=== PATIENT | male | born 1955 | race Caucasian/White ===

== ENCOUNTER 2016-11-26 16:00 | Inpatient (IN) | payer OTHER ==
[~2016-11-26] VITALS: Ht 185.4 cm; Wt 105.0 kg
[2016-11-26] MEDS ORDERED: SODIUM CHLORIDE 0.9% 1000ML 1,000 ML IV STA (16:19)
[2016-11-26] MEDS ORDERED: MoRPHine SULFATE 4 MG/ML 1 ML CARP\\VIAL IV STA (16:22)
[2016-11-26] MEDS ORDERED: ONDANSETRON INJ 2 MG/ML 2 ML VIAL IV STA ×2 (16:22→17:29)
[2016-11-26] MEDS ORDERED: OPTIRAY 320 IV PRN (16:30)
[2016-11-26 16:36] LABS: BASO % 0.1 %; BASO ABS # 0.01 K/uL (0-0.2); COMPLETE YES; HEMATOCRIT 40.5 % (42-52); IG% 0.5 %; LYMPH % 3.3 %; LYMPH ABS # 0.46 K/uL (1.2-3.4); MEAN CELL VOLUME 89.2 fL (80-100); MEAN CORPUSCULAR HEMOGLOBIN 31.5 pg (25-34); MEAN CORPUSCULAR HGB CONC 35.3 g/dl (32-36); MONO % 1.4 %; NEUT % 94.7 %; PLATELET COUNT 178 K/uL (130-400); RED BLOOD COUNT 4.54 M/uL (4.7-6.1); WHITE BLOOD COUNT 13.92 K/uL (4.8-10.8)
--- NOTE | 2016-11-26 16:43 | EMERGENCY ROOM VISIT NOTE ---
History Report prepared by Jhoana: Jase Abreu Under the Supervision of: Dr. Maxwell Posey D.O. First contact with patient: 16:08 Chief Complaint: LEG PAIN,LEG INJURY Stated Complaint: R LE ETREMITY PAIN, SWELLING, R/O BLOOD BLOT History of Present Illness The patient is a 61 year old male who presents to the Emergency Room with complaints of intermittent right foot tingling and stiffness that occurred this morning post surgery. The patient states he had a complete right knee replacement this morning at an outpatient center in [place]. He reports his foot hurt really bad after the surgery. The patient notes a Doppler scan was performed to search for a distal pulse, but it could not be found. He states heat was applied for an hour, and the pulse was still not detectable. The patient reports they bandaged his knee up and sent him to the ED for a CT to rule out a blood clot. He notes when his discomfort started, he could not move his foot. The patient states his discomfort radiated through his foot to the middle of the ankle. He reports it went away, and he was able to move his foot again. The patient notes sitting down worsens his discomfort. Source of History: patient Onset: this morning post surgery Position: foot (right) Quality: tingling, other (stiffness) Modifying Factors (Worsening): other (sitting) Note: Associated symptoms: unidentifiable distal pulse Review of Systems See HPI for pertinent positives & negatives. A total of 10 systems reviewed and were otherwise negative. Past Medical & Surgical Surgical Problems: (1) History of right knee joint replacement Family History Patient reports no known family medical history. Social History Smoking Status: Never Smoker Marital Status: Current/Historical Medications Scheduled Aspirin (Aspirin Ec), 81 MG PO BID Cholecalciferol (Vitamin D3), 1 TAB PO DAILY Fish Oil ([place]-3), 1 CAP PO HOLD Meloxicam (Mobic), 15 MG PO DAILY Scheduled PRN Celecoxib (CeleBREX), 200 MG PO BID PRN for Pain Docusate Sodium (Docusate Sodium), 1 CAP PO DAILY PRN for Constipation Ondasetron Odt (Zofran Odt), 4 MG SL Q8 PRN for Nausea or Vomiting Oxycodone Immediate Rel Tab (Roxicodone Ir), 5 MG PO PRN UD PRN for Severe Pain Allergies Coded Allergies: Sulfa Antibiotics (Verified Allergy, Unknown, Childhood allergy, 11/26/16) Physical Exam Vital Signs Date Time Temp Pulse Resp B/P (MAP) Pulse Ox O2 Delivery O2 Flow Rate FiO2 11/26/16 18:58 88 15 159/82 95 11/26/16 17:37 66 11/26/16 17:29 63 15 131/70 95 Room Air 11/26/16 16:02 36.9 71 18 149/85 96 Room Air Physical Exam GENERAL: Sitting up is bed, disheveled, no distress, non-toxic EYE EXAM: normal conjunctiva OROPHARYNX: no exudate, no erythema, lips, buccal mucosa, and tongue normal and mucous membranes are moist NECK: supple, no nuchal rigidity, no adenopathy, non-tender LUNGS: Clear to auscultation. Normal chest wall mechanics HEART: no murmurs, S1 normal and S2 normal ABDOMEN: abdomen soft, non-tender, normo-active bowel sounds, no masses, no rebound or guarding. BACK: Back is symmetrical on inspection and there is no deformity, no midline tenderness, no CVA tenderness. SKIN: no rashes and no bruising UPPER EXTREMITIES: upper extremities are grossly normal. LOWER EXTREMITIES: Palpable right femoral pulse, unable to detect popliteal, DT , and PT pulses. Gross sensation intact. Surgical dressing over top of right knee is bloody with a small amount of oozing. NEURO EXAM: Normal sensorium. Medical Decision & Procedures ER Provider Diagnostic Interpretation: Radiology results as stated below per my review and the radiologist's interpretation: R ANGIOGRAPHY LOWER EXT COMBO CLINICAL HISTORY: 61 years-old Male presenting with right knee replacement today, loss of pulse in the foot, foot numbness and tingling. TECHNIQUE: Multidetector CT angiography of the right lower extremity was performed after the administration of intravenous contrast. 3-D volumetric and/or maximum intensity projection (MIP) images were subsequently reconstructed for review. IV contrast: 120 mL of Optiray 320. A dose lowering technique was used consistent with the principles of ALARA (as low as reasonably achievable). Stenosis measurements were based on NASCET-like criteria. COMPARISON: None. CT DOSE (mGy.cm): The estimated cumulative dose is 900.42 mGy.cm. 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 Right external iliac artery patent. Circumferential calcified and noncalcified atherosclerotic plaque at the common femoral, which results in mild narrowing. The superficial and deep right femoral arteries are patent. At the level of the popliteal hiatus, there is complete occlusion of the right popliteal artery immediately distal to the takeoff of a superficial vessel. The right popliteal artery is occluded throughout its course, although poorly assessed at the level of the knee joint secondary to extensive streak artifact arising from the arthroplasty. The tibioperoneal trunk is occluded. Minimal reconstitution of the proximal anterior tibial artery from a collateral vessel with the mid to distal anterior tibial artery not opacified, possibly occluded. The peroneal artery is nonopacified at its origin and proximally but reconstituted in the mid to distal portion by a superficial collateral vessel. The posterior tibial artery is also not opacified proximally but reconstituted in the mid to distal portion by a superficial collateral vessel. Poor opacification of the vessels at the level of the ankle mortise and beyond. Minimal visualization of the left lower extremity within normal limits. Post surgical changes of total right knee arthroplasty with patellar resurfacing. Expected intra-articular and soft tissue emphysema. Overlying surgical skin deloris in place. No acute fracture or hardware complication. No malalignment. Normal muscle bulk. No fluid collection outside of postsurgical change. No soft tissue gas outside of postsurgical change. IMPRESSION: 1. Occlusion of the right popliteal artery at the level of the abductor hiatus and throughout its length. Suspected occlusion or poor opacification of the proximal portions of the branch vessels tibial with reconstitution of flow in the mid to distal peroneal and posterior tibial arteries. The anterior tibial artery is largely non-opacified by collateral vessel. Poor opacification of all vessels at and distal to the ankle. 2. Post surgical changes of total right knee arthroplasty with patellar resurfacing. The report will be called/faxed according to standard departmental protocol. Electronically signed by: Norbert Calderon M.D. 11/26/2016 5:39 PM Dictated Date/Time: 11/26/2016 5:27 PM Laboratory Results 11/26/16 16:26 Red Blood Count 4.54, Mean Corpuscular Volume 89.2, Mean Corpuscular Hemoglobin 31.5, Mean Corpuscular Hemoglobin Concent 35.3, Mean Platelet Volume 9.0, Neutrophils (%) (Auto) 94.7, Lymphocytes (%) (Auto) 3.3, Monocytes (%) (Auto) 1.4, Eosinophils (%) (Auto) 0.0, Basophils (%) (Auto) 0.1, Neutrophils # (Auto) 13.19, Lymphocytes # (Auto) 0.46, Monocytes # (Auto) 0.19, Eosinophils # (Auto) 0.00, Basophils # (Auto) 0.01 11/26/16 16:26 Test 11/26/16 16:26 11/26/16 16:36 White Blood Count 13.92 K/uL (4.8-10.8) Red Blood Count 4.54 M/uL (4.7-6.1) Hemoglobin 14.3 g/dL (14.0-18.0) Hematocrit 40.5 % (42-52) Mean Corpuscular Volume 89.2 fL (80-100) Mean Corpuscular Hemoglobin 31.5 pg (25-34) Mean Corpuscular Hemoglobin Concent 35.3 g/dl (32-36) Platelet Count 178 K/uL (130-400) Mean Platelet Volume 9.0 fL (7.4-10.4) Neutrophils (%) (Auto) 94.7 % Lymphocytes (%) (Auto) 3.3 % Monocytes (%) (Auto) 1.4 % Eosinophils (%) (Auto) 0.0 % Basophils (%) (Auto) 0.1 % Neutrophils # (Auto) 13.19 K/uL (1.4-6.5) Lymphocytes # (Auto) 0.46 K/uL (1.2-3.4) Monocytes # (Auto) 0.19 K/uL (0.11-0.59) Eosinophils # (Auto) 0.00 K/uL (0-0.5) Basophils # (Auto) 0.01 K/uL (0-0.2) RDW Standard Deviation 40.3 fL (36.4-46.3) RDW Coefficient of Variation 12.6 % (11.5-14.5) Immature Granulocyte % (Auto) 0.5 % Immature Granulocyte # (Auto) 0.07 K/uL (0.00-0.02) Est Creatinine Clear Calc Drug Dose 72.1 ml/min Estimated GFR () 74.7 Estimated GFR (Non- 64.4 BUN/Creatinine Ratio 15.9 (10-20) Calcium Level 8.1 mg/dl (8.5-10.1) Bedside Hemoglobin 13.9 g/dl (14.0-18.0) Bedside Hematocrit 41 % (42-52) Bedside Sodium 137 mEq/L (135-144) Bedside Potassium 4.2 mEq/L (3.3-5.0) Bedside Chloride 103 mEq/L (101-112) Bedside Total CO2 21 mEq/l (24-31) Anion Gap 19.0 mmol/L (16-25) Bedside Blood Urea Nitrogen 20 mg/dl (7-18) Bedside Creatinine 1.0 mg/dl (0.6-1.3) Bedside Glucose (other) 200 mg/dl (70-99) Bedside Ionized Calcium (Tiny) 1.17 mmol/l (1.12-1.32) Laboratory results per my review. Medications Administered Medications (Trade) Dose Ordered Sig/Sondra Route Start Time Stop Time Status Last Admin Dose Admin Sodium Chloride 1,000 ml @ 999 mls/hr Q1H1M STAT IV 11/26/16 16:19 11/26/16 17:19 DC 11/26/16 16:47 999 MLS/HR Morphine Sulfate (MoRPHine SULFATE INJ) 4 mg NOW STAT IV 11/26/16 16:22 11/26/16 16:23 DC 11/26/16 16:47 4 MG Ondansetron HCl (Zofran Inj) 4 mg NOW STAT IV 11/26/16 16:22 11/26/16 16:23 DC 11/26/16 16:47 4 MG Miscellaneous Information (Patient'S Allergy Info Needs Entered) 1 ea Q30M N/A 11/26/16 17:00 12/26/16 16:59 11/26/16 17:34 1 EA Morphine Sulfate (MoRPHine SULFATE INJ) 6 mg NOW STAT IV 11/26/16 17:29 11/26/16 17:30 DC 11/26/16 17:34 6 MG Ondansetron HCl (Zofran Inj) 4 mg NOW STAT IV 11/26/16 17:29 11/26/16 17:30 DC 11/26/16 17:34 4 MG ECG Indication: other (unobtainable distal pulses) Rate (beats per minute): 71 Rhythm: sinus rhythm Findings: RBBB (incomplete), left axis deviation, other (poor baseline) ED Course ED COURSE: Vital signs were reviewed and showed the patient is hypertensive. The patients medical record was reviewed The above diagnostic studies were performed and reviewed. ED treatments and interventions as stated above. 1611: The patient was evaluated in room C09. A complete history and physical examination was performed. 1619: Ordered Sodium Chloride 1000 ml @ 999 mls/hr IV 1622: Ordered Zofran Inj 4mg IV, Morphine Sulfate 4mg IV 1729: Ordered Zofran Inj 4mg IV, Morphine Sulfate 6mg IV 175: I discussed the patient's case with Dr. Del Toro, Surgery. The patient will be evaluated for further treatment and care. 175: Upon reevaluation, the patient is resting.I discussed my findings with the patient and he understands and agrees with the treatment plan. 1847: I reevaluated the patient. Dr. Del Toro has not seen the patient yet. Based on the patients age, coexisting illnesses, exam and lab findings the decision to treat as an inpatient was made. The patient remained stable while under my care. The patient will be evaluated for further management. Medical Decision Differential diagnosis: Etiologies such as DVT, musculoskeletal, infection, joint effusion, trauma, lymphedema, idiopathic, CHF, arterial occlusion, as well as others were entertained. Patient is a 61-year-old male who has had a right knee replacement down in [place]. Patient had pain and tingling in the right foot following the surgery associated with tightness. They were unable to obtain pulses they sent him for CTA of the leg. He denies any headache or change in vision. On my exam I am unable to obtain pulses from the popliteal distally. I-STAT was obtained and he was sent for CT of the leg. CBC has mild leukocytosis. BMP was unremarkable. CT angiogram of the leg shows acute arterial occlusion of the popliteal artery and distally. Discussed with vascular surgery who evaluated the patient agreed taken to the OR. Held on anticoagulation per vascular surgery. Discussed with anesthesia at bedside. Medication Reconcilliation Current Medication List: was personally reviewed by me Blood Pressure Screening Patient's blood pressure: Elevated blood pressure Blood pressure disposition: Elevated BP felt to be situational Consults Time Called: 174 Consulting Physician: Dr. Del Toro, Surgery Returned Call: [phone] I discussed the patient's case with Dr. Del Toro, Surgery. The patient will be evaluated for further treatment and care. Impression Primary Impression: Arterial occlusion Critical Care I have personally spent 35 minutes of critical care time in the direct management of this patient. This includes bedside care, interpretation of diagnostic studies, and testing, discussion with consultants, patient, and family members, and other required patient management activities. This 35 minutes is in excess of all separately billable procedures. Scribe Attestation The scribe's documentation has been prepared under my direction and personally reviewed by me in its entirety. I confirm that the note above accurately reflects all work, treatment, procedures, and medical decision making performed by me. Departure Information Dispostion Being Evaluated By Surgeon Nikolai Taylor M.D. (PCP) Patient Instructions My [facility]
[2016-11-26 16:50] LABS: ISTAT HEMOGLOBIN 13.9 g/dl (14.0-18.0); ISTAT IONIZED CALCIUM 1.17 mmol/l (1.12-1.32)
[2016-11-26] MEDS: PATIENT'S ALLERGY INFO NEEDS ENTERED SCH ×2 (17:00→17:34)
[2016-11-26] MEDS ORDERED: OMEG10007 PO (17:15)
[2016-11-26] MEDS ORDERED: CHOL1000 PO (17:15)
[2016-11-26] MEDS ORDERED: MoRPHine SULFATE 10 MG/ML CARP/VIAL IV STA (17:29)
[2016-11-26 17:37] LABS: BUN/CREATININE RATIO 15.9 (10-20); CALCIUM 8.1 mg/dl (8.5-10.1); CREATININE 1.2 mg/dl (0.60-1.40); POTASSIUM 4.2 mmol/L (3.5-5.1)
[2016-11-26] MEDS ORDERED: MELO15TA10 PO (17:39)
[2016-11-26] MEDS ORDERED: ASPI81TA28 PO (17:39)
[2016-11-26] MEDS ORDERED: DOCU100C31 PO (17:39)
[2016-11-26] MEDS ORDERED: ONDA4TAB10 SL (17:39)
[2016-11-26] MEDS ORDERED: OXYC1TAB3 PO (17:39)
[2016-11-26] MEDS ORDERED: CLB/200 PO (17:39)
--- NOTE | 2016-11-26 17:40 | DIAGNOSTIC IMAGING REPORT ---
R ANGIOGRAPHY LOWER EXT COMBO CLINICAL HISTORY: 61 years-old Male presenting with right knee replacement today, loss of pulse in the foot, foot numbness and tingling. TECHNIQUE: Multidetector CT angiography of the right lower extremity was performed after the administration of intravenous contrast. 3-D volumetric and/or maximum intensity projection (MIP) images were subsequently reconstructed for review. IV contrast: 120 mL of Optiray 320. A dose lowering technique was used consistent with the principles of ALARA (as low as reasonably achievable). Stenosis measurements were based on NASCET-like criteria. COMPARISON: None. CT DOSE (mGy.cm): The estimated cumulative dose is 900.42 mGy.cm. FINDINGS: Technical Associate topogram: Total right knee arthroplasty. Right external iliac artery patent. Circumferential calcified and noncalcified atherosclerotic plaque at the common femoral, which results in mild narrowing. The superficial and deep right femoral arteries are patent. At the level of the popliteal hiatus, there is complete occlusion of the right popliteal artery immediately distal to the takeoff of a superficial vessel. The right popliteal artery is occluded throughout its course, although poorly assessed at the level of the knee joint secondary to extensive streak artifact arising from the arthroplasty. The tibioperoneal trunk is occluded. Minimal reconstitution of the proximal anterior tibial artery from a collateral vessel with the mid to distal anterior tibial artery not opacified, possibly occluded. The peroneal artery is nonopacified at its origin and proximally but reconstituted in the mid to distal portion by a superficial collateral vessel. The posterior tibial artery is also not opacified proximally but reconstituted in the mid to distal portion by a superficial collateral vessel. Poor opacification of the vessels at the level of the ankle mortise and beyond. Minimal visualization of the left lower extremity within normal limits. Post surgical changes of total right knee arthroplasty with patellar resurfacing. Expected intra-articular and soft tissue emphysema. Overlying surgical skin deloris in place. No acute fracture or hardware complication. No malalignment. Normal muscle bulk. No fluid collection outside of postsurgical change. No soft tissue gas outside of postsurgical change. IMPRESSION: 1. Occlusion of the right popliteal artery at the level of the abductor hiatus and throughout its length. Suspected occlusion or poor opacification of the proximal portions of the branch vessels tibial with reconstitution of flow in the mid to distal peroneal and posterior tibial arteries. The anterior tibial artery is largely non-opacified by collateral vessel. Poor opacification of all vessels at and distal to the ankle. 2. Post surgical changes of total right knee arthroplasty with patellar resurfacing. The report will be called/faxed according to standard departmental protocol. Electronically signed by: Norbert Calderon M.D. 11/26/2016 5:39 PM Dictated Date/Time: 11/26/2016 5:27 PM
[2016-11-26] MEDS ORDERED: PAPAVERINE HCL INJ 30 MG/ML 2 ML VIAL ONE (19:15)
[2016-11-26] MEDS ORDERED: THROMBIN 5000 UNITS KIT ONE (19:15)
[2016-11-26] MEDS ORDERED: BUPIVACAINE/EPINEPHRINE 0.5% MPF 1:200,000 30 ML VIAL ONE (19:15)
[2016-11-26] MEDS ORDERED: LIDOCAINE HCL 1% 20 ML VIAL ONE (19:15)
[2016-11-26] MEDS ORDERED: IODIXANOL (VISIPAQUE) 270 MG/ML 50ML ONE (19:15)
[2016-11-26] MEDS ORDERED: GELATIN SPONGE SZ 100 ONE (19:15)
[2016-11-26] MEDS ORDERED: HEPARIN SOD (PORCINE) 1000 UNIT/ML 10 ML VIAL ONE ×3 (19:16→22:10)
[2016-11-26] MEDS ORDERED: CEFAZOLIN SOD 1 GM VIAL ONE ×2 (19:16→19:30)
[2016-11-26] MEDS ORDERED: MIDAZOLAM HCL 1 MG/ML 2ML VIAL ONE (19:17)
[2016-11-26] MEDS ORDERED: PROPOFOL IV EMULSION 10 MG/ML 20 ML VIAL IV ONE (19:17)
[2016-11-26] MEDS ORDERED: FENTANYL CITRATE INJ 50 MCG/1 ML 2 ML VIAL ONE (19:17)
--- NOTE | 2016-11-26 19:17 | History and Physical ---
History & Physical Date Nov 26, 2016. Chief Complaint Right leg ischemia History of Present Illness The patient is a 61 year old male who had a total knee today. Post op he developed pain, coldness and numbness of his right foot. Did not improve and he was then sent here for treatment. Vitals Vital Signs Past 12 Hours Date Time Temp Pulse Resp B/P (MAP) Pulse Ox O2 Delivery O2 Flow Rate FiO2 11/26/16 18:58 88 15 159/82 95 11/26/16 17:37 66 11/26/16 17:29 63 15 131/70 95 Room Air 11/26/16 16:02 36.9 71 18 149/85 96 Room Air Allergies Coded Allergies: Sulfa Antibiotics (Verified Allergy, Unknown, Childhood allergy, 11/26/16) Home Medications Scheduled Aspirin (Aspirin Ec), 81 MG PO BID Cholecalciferol (Vitamin D3), 1 TAB PO DAILY Fish Oil ([place]-3), 1 CAP PO HOLD Meloxicam (Mobic), 15 MG PO DAILY Scheduled PRN Celecoxib (CeleBREX), 200 MG PO BID PRN for Pain Docusate Sodium (Docusate Sodium), 1 CAP PO DAILY PRN for Constipation Ondasetron Odt (Zofran Odt), 4 MG SL Q8 PRN for Nausea or Vomiting Oxycodone Immediate Rel Tab (Roxicodone Ir), 5 MG PO PRN UD PRN for Severe Pain Social History Smoking Status: Never Smoker Review of Systems Constitutional: No chills, No diaphoresis, No fever, No malaise, No weakness, No weight gain, No weight loss, No sweats, No fatigue, No problem reported Respiratory: No cough, No cyanosis, No SUÁREZ, No hemoptysis, No orthopnea, No PND , No short of breath, No sputum production, No stridor, No wheezing, No dyspnea , No problem reported Cardiovascular: No chest pain, No chest tightness, No chest pressure, No palpitations, No syncope, No diaphoresis, No edema, No intermittent claudication , No orthopnea, No cyanosis, No mumur, No lightheadedness, No paroxysmal nocturnal dyspnea, No problem reported Gastrointestinal: No abdominal pain, No constipation, No diarrhea, No nausea, No vomiting, No anorexia, No appetite changes, No belching, No flatulence, No food intolerance, No hematemesis, No hemorrhoids, No hematochezia, No stool changes, No heartburn, No indigestion, No dysphagia, No rectal bleeding, No problem reported Musculoskeletal: + joint pain Neurologic: No dizziness, No weakness, No headache, No lethargy, No numbness, No paresthesia, No pre-existing deficit, No seizures, No tics, No tingling, No tremors, No vertigo, No memory loss, No LOC, No problem reported Physical Exam Constitutional: General Apperance: heathly-appearing, well-nourished, well-developed Level of Distress: NAD Ambulation: ambulating normally Psychiatric: Mental Status: active & alert, normal mood, normal affect Orientation: oriented except where noted, to time, to place, to person Memory: recent memory normal, remote memory normal Lungs: Auscultation: breath sounds normal Cardiovascular: Heart Auscultation: RRR Peripheral Pulses: Radial Pulse: normal on the left, normal on the right Femoral Pulse: normal on the left, normal on the right Posterior Tibialis Pulse: normal on the left, absent on the right Dorsalis Pedis Pulse: normal on the left, absent on the right Abdomen: Inspection & Palpation: soft Musculoskeletal: normal Extremities: Upper Right: no cyanosis, no edema, no varicosities, no palpable cord, no clubbing, no ulcers, no mottling Upper Left: no cyanosis, no edema, no varicosities, no palpable cord, no clubbing, no ulcers, no mottling Lower Right: pertinent finding (pale and cool) Lower Left: no cyanosis, no edema, no varicosities, no palpable cord, no clubbing, no ulcers, no mottling Neurologic: Cranial Nerves: grossly intact Sensation: grossly intact Assessment and Plan Imp: Right popliteal artery occlusion Plan: CTA showed a right popliteal artery occlusion. Will need operative intervention. I have discussed the risks options and benefits of the procedure with the patient. The patient understands the risks options and benefits and agrees to the procedure.
[2016-11-26] MEDS ORDERED: ONDANSETRON INJ 2 MG/ML 2 ML VIAL ONE (19:28)
[2016-11-26] MEDS ORDERED: DEXAMETHASONE SOD INJ 4 MG/ML VIAL ONE (19:28)
[2016-11-26] MEDS ORDERED: GLYCOPYRROLATE INJ 0.2 MG/ML VIAL ONE (19:30)
[2016-11-26] MEDS ORDERED: NEOSTIGMINE METHYLSULFATE 5 MG/5 ML SYR ONE (19:30)
[2016-11-26] MEDS ORDERED: ONDANSETRON INJ 2 MG/ML 2 ML VIAL IV PRN (20:00)
[2016-11-26] MEDS ORDERED: MEPERIDINE HCL 25 MG/ML CARP IV PRN (20:00)
[2016-11-26] MEDS ORDERED: LABETALOL HCL IV 5 MG/ML 20ML IV PRN (20:00)
[2016-11-26] MEDS ORDERED: ATROPINE SULFATE 0.1 MG/ML 5ML SYR IV PRN (20:00)
[2016-11-26] MEDS ORDERED: FENTANYL CITRATE INJ 50 MCG/1 ML 2 ML VIAL IV PRN (20:00)
[2016-11-26] MEDS ORDERED: EpHEDrine SULFATE INJ 50 MG/ML AMP IV PRN (20:00)
[2016-11-26] MEDS ORDERED: HYDROmorphone INJ 1 MG/ML SYR IV PRN (20:00)
[2016-11-26] MEDS ORDERED: EpHEDrine SULFATE INJ 50 MG/ML AMP ONE (21:02)
[2016-11-26] MEDS ORDERED: PHENYLEPHRINE HCL INJ 10 MG/ML VIAL ONE (21:27)
[2016-11-27] VITALS (25 sets, daily range): BP systolic 87–127; BP diastolic 57–87; PULSE 71–110; TEMP 36.1–37; O2SAT 97–100; Ht 185.4 cm; Wt 105.0 kg
[2016-11-27 00:45] LABS: HEMATOCRIT 33.6 % (42-52)
[2016-11-27] MEDS ORDERED: ALBUMIN HUMAN 5% 12.5 GM/250 ML VIAL IV ONE (00:53)
[2016-11-27] MEDS ORDERED: HYDROmorphone INJ 2 MG/ML SYR/VIAL ONE (02:03)
[2016-11-27] MEDS ORDERED: PROPOFOL IV EMULSION 10 MG/ML 20 ML VIAL IV ONE (02:04)
[2016-11-27] MEDS ORDERED: D5W AND 1/2NSS 1,000 ML IV SCH (02:29)
--- NOTE | 2016-11-27 02:29 | [facility] Post Operative Brief Note ---
Immediate Operative Summary Operative Date Nov 27, 2016. Pre-Operative Diagnosis Right popliteal artery occlusionRight Ischemic Leg Post-Operative Diagnosis Right Ischemic Leg; Right popliteal artery occlusion and infrpopliteal occlusive disease Procedure(s) Performed Thrombectomy of right lower extremity; arteriography; exploration of anterior tibial artery; femoral to distal posterior tibial artery insitu bypass. Surgeon Dr. Del Toro Post Secondary Professional Surgeon(s) none Estimated Blood Loss 1200mL Findings doppler heard beyond the bypass Specimens none per surgeon Anesthesia Gen Complication(s) None Disposition Surgical ICU
[2016-11-27] MEDS ORDERED: PROPOFOL IV EMULSION 10 MG/ML 100 ML VIAL IV ONE (02:41)
[2016-11-27] MEDS ORDERED: PHENYLEPHRINE HCL INJ 20 MG in DEXTROSE 5% 500ML 500 ML IV PRN (03:18)
[2016-11-27] MEDS ORDERED: FENTANYL CITRATE INJ 50 MCG/1 ML 2 ML VIAL IV PRN (03:30)
[2016-11-27] MEDS ORDERED: EpHEDrine SULFATE INJ 50 MG/ML AMP IV PRN (03:45)
[2016-11-27] MEDS ORDERED: ATROPINE SULFATE 0.1 MG/ML 5ML SYR IV PRN (03:45)
[2016-11-27] MEDS ORDERED: MIDAZOLAM 125MG/250ML D5W 250 ML IV PRN (03:45)
[2016-11-27 04:03] LABS: BUN/CREATININE RATIO 11.3 (10-20); CREATININE 1.6 mg/dl (0.60-1.40); POTASSIUM 5.1 mmol/L (3.5-5.1)
[2016-11-27 04:04] LABS: HEMATOCRIT 27.8 % (42-52); MEAN CELL VOLUME 91.7 fL (80-100); MEAN CORPUSCULAR HEMOGLOBIN 31.4 pg (25-34); MEAN CORPUSCULAR HGB CONC 34.2 g/dl (32-36); MEAN PLATELET VOLUME 8.3 fL (7.4-10.4); PLATELET COUNT 187 K/uL (130-400); RED BLOOD COUNT 3.03 M/uL (4.7-6.1); WHITE BLOOD COUNT 23.31 K/uL (4.8-10.8)
[2016-11-27 04:05] LABS: BASO ABS # 0.01 K/uL (0-0.2); COMPLETE YES; IG% 0.7 %; LYMPH % 6.9 %; LYMPH ABS # 1.61 K/uL (1.2-3.4); MONO % 6.2 %; NEUT % 86.2 %
[2016-11-27] MEDS: NORMOSOL R 1,000 ML IV SCH ×2 (04:08→09:02)
[2016-11-27] MEDS: CEFAZOLIN IV 2,000 MG in DEXTROSE 5% 50ML 50 ML IV SCH ×2 (04:21→12:18)
--- NOTE | 2016-11-27 04:41 | Critical Care Consultation ---
Critical Care Consultation Date of Consultation: Nov 27, 2016. Attending Physician: Jase Del Toro M.D. Reason for Consultation: 61-year-old man status post RIGHT lower extremity thrombectomy with bypass grafting in the setting of acute RIGHT popliteal artery occlusion and ischemic leg. History of Present Illness History of present illness is limited secondary the patient's current state of sedation with intubation. Per records and staff members, the patient is a 61-year-old male who underwent elective outpatient RIGHT total knee arthroplasty this morning in [facility]. While in the recovery room, the patient reported to have coldness and numbness to the RIGHT lower extremity. He was directed to the closest emergency department and elected to come to the [facility] by private vehicle for further evaluation and management. A CTA of the RIGHT lower extremity confirms suspicion of acute arterial occlusion of the RIGHT lower extremity. Emergent consultation to Dr. Del Toro of vascular surgery was obtained. Thrombectomy of the RIGHT lower extremity with bypass grafting was performed on an emergent basis. There was reportedly a moderate amount of blood loss. Patient required blood pressure support with phenylephrine throughout the procedure. He received 1 unit of PRBCs intraoperatively. He was brought to the ICU intubated and sedated with propofol. The patient was thought to have undergone stress test prior to surgical intervention earlier today. He is known to have osteoarthritis. No known history of cardiac disease otherwise. Patient was a former 40 year smoker. Past Medical/Surgical History Medical Problems: (1) Osteoarthritis. Past Surgical History: (1) RIGHT Total Knee Arthroplasty Family History Patient reports no known family medical history. Noncontributory Social History Smoking Status: Former Smoker Smokeless Tobacco Use: No Alcohol Use: Drug Use: none Marital Status: Housing Status: lives with family Occupation Status: employed Allergies Coded Allergies: Sulfa Antibiotics (Verified Allergy, Unknown, Childhood allergy, 11/26/16) Home Medications Scheduled Aspirin (Aspirin Ec), 81 MG PO BID Cholecalciferol (Vitamin D3), 1 TAB PO DAILY Fish Oil ([place]-3), 1 CAP PO HOLD Meloxicam (Mobic), 15 MG PO DAILY Scheduled PRN Celecoxib (CeleBREX), 200 MG PO BID PRN for Pain Docusate Sodium (Docusate Sodium), 1 CAP PO DAILY PRN for Constipation Ondasetron Odt (Zofran Odt), 4 MG SL Q8 PRN for Nausea or Vomiting Oxycodone Immediate Rel Tab (Roxicodone Ir), 5 MG PO PRN UD PRN for Severe Pain Current Inpatient Medications Current Inpatient Medications Medications (Trade) Dose Ordered Sig/Sondra Route Start Time Stop Time Status Last Admin Dose Admin Ioversol (Optiray 320) 100 ml UD PRN IV 11/26/16 16:30 11/30/16 16:29 Morphine Sulfate (MoRPHine SULFATE INJ) If PO analgesic is orde... Q2H PRN IV 11/27/16 02:30 12/11/16 02:29 Cefazolin Sodium 2000 mg/Dextrose 60 ml @ 100 mls/hr Q8H IV 11/27/16 04:00 11/27/16 12:35 11/27/16 04:21 100 MLS/HR Enoxaparin Sodium (Lovenox Inj) 30 mg Q12 SQ 11/27/16 08:00 12/27/16 07:59 UNV Aspirin (Ecotrin Tab) 81 mg BID PO 11/27/16 09:00 12/27/16 08:59 Parenteral Electrolyte Solution 1,000 ml @ 100 mls/hr Q10H IV 11/27/16 03:15 12/27/16 03:14 11/27/16 04:08 100 MLS/HR Fentanyl Citrate (Fentanyl Inj) 50 mcg Q1H PRN IV 11/27/16 03:30 12/11/16 03:29 Pantoprazole Sodium 40 mg/ Syringe 10 ml @ 5 mls/min DAILY@1100 IV 11/27/16 11:00 12/27/16 10:59 Phenylephrine HCl 20 mg/Dextrose 502 ml @ 0 mls/hr Q0M PRN IV 11/27/16 03:18 12/27/16 03:17 Ephedrine Sulfate (EpHEDrine SULFATE INJ) 5 mg Q5M PRN IV 11/27/16 03:45 11/27/16 10:00 Atropine Sulfate (Atropine Sulfate 0.1MG/Ml Inj) 0.5 mg Q1M PRN IV 11/27/16 03:45 11/27/16 10:00 Midazolam HCl 250 ml @ 0 mls/hr Q0M PRN IV 11/27/16 03:45 12/27/16 03:44 11/27/16 04:02 2 MLS/HR Review of Systems Unable to obtain secondary to sedation and intubation. Physical Exam Date Time Temp Pulse Resp B/P (MAP) Pulse Ox O2 Delivery O2 Flow Rate FiO2 11/27/16 04:26 36.4 107 12 92/65 (74) 100 Mechanical Ventilator 40 11/27/16 03:23 40 11/27/16 03:10 36 110 16 121/75 (84) 100 Mechanical Ventilator 40 11/27/16 03:00 36 95 12 11/27/16 03:00 95 12 91/54 100 11/27/16 02:55 93 12 84/57 100 11/27/16 02:55 92 12 11/27/16 02:52 78/57 11/27/16 02:50 90 12 100 11/27/16 02:50 90 12 11/27/16 02:45 89 12 11/27/16 02:45 89 12 100 11/27/16 02:43 107/65 11/27/16 02:40 87 18 11/27/16 02:40 87 18 100 11/27/16 02:37 189/103 11/27/16 02:30 36.1 84 16 189/103 (121) 100 Mechanical Ventilator 40 11/26/16 18:58 88 15 159/82 95 11/26/16 17:37 66 11/26/16 17:29 63 15 131/70 95 Room Air 11/26/16 16:02 36.9 71 18 149/85 96 Room Air VITAL SIGNS - Vital signs and nursing notes were reviewed. GENERAL - 61-year-old male appearing his stated age who is in no acute distress. Sedated and endotracheally intubated. HEAD - NC/AT. EYES - Sluggish Pupils with EOMI bilaterally. Sclera anicteric. Palpebral conjunctiva pink and moist with no injection noted. EARS - No deformities of external structures noted on gross examination bilaterally. NOSE - Midline and without cyanosis. No epistaxis or purulent drainage noted. Septum midline without deviation or septal hematoma noted. MOUTH/OROPHARYNX - Without perioral cyanosis. Endotracheally intubated. NECK - Supple to palpation. LUNGS - Chest wall symmetric without accessory muscle use, intercostals retractions, or central cyanosis. Normal vesicular breath sounds CTA B/L. No wheezes, rales, or rhonchi appreciated. CARDIAC - RRR with S1/S2. No murmur, rubs, or gallops appreciated. ABDOMEN - Abdominal contour obese without pulsations or visible masses. BS normoactive all four quadrants. EXTREMITIES - Bilateral surgical incisions noted to the RIGHT lower extremity. Slight mottling of the RIGHT Foot. No palpable dorsalis pedis pulse. Doppler of the RIGHT posterior tibial pulse noted. NEUROLOGIC/PSYCH - Unable to assess secondary to state of intubation with sedation. Laboratory Results Last 24 Hours Test 11/26/16 16:26 11/26/16 16:36 11/27/16 00:31 11/27/16 03:25 White Blood Count 13.92 K/uL 23.31 K/uL Red Blood Count 4.54 M/uL 3.03 M/uL Hemoglobin 14.3 g/dL 11.8 g/dL 9.5 g/dL Hematocrit 40.5 % 33.6 % 27.8 % Mean Corpuscular Volume 89.2 fL 91.7 fL Mean Corpuscular Hemoglobin 31.5 pg 31.4 pg Mean Corpuscular Hemoglobin Concent 35.3 g/dl 34.2 g/dl Platelet Count 178 K/uL 187 K/uL Mean Platelet Volume 9.0 fL 8.3 fL Neutrophils (%) (Auto) 94.7 % 86.2 % Lymphocytes (%) (Auto) 3.3 % 6.9 % Monocytes (%) (Auto) 1.4 % 6.2 % Eosinophils (%) (Auto) 0.0 % 0.0 % Basophils (%) (Auto) 0.1 % 0.0 % Neutrophils # (Auto) 13.19 K/uL 20.07 K/uL Lymphocytes # (Auto) 0.46 K/uL 1.61 K/uL Monocytes # (Auto) 0.19 K/uL 1.44 K/uL Eosinophils # (Auto) 0.00 K/uL 0.01 K/uL Basophils # (Auto) 0.01 K/uL 0.01 K/uL RDW Standard Deviation 40.3 fL 43.3 fL RDW Coefficient of Variation 12.6 % 12.9 % Immature Granulocyte % (Auto) 0.5 % 0.7 % Immature Granulocyte # (Auto) 0.07 K/uL 0.17 K/uL Sodium Level 137 mmol/L 142 mmol/L Potassium Level 4.2 mmol/L 5.1 mmol/L Chloride Level 106 mmol/L 109 mmol/L Carbon Dioxide Level 22 mmol/L 25 mmol/L Anion Gap 9.0 mmol/L 19.0 mmol/L 8.0 mmol/L Blood Urea Nitrogen 19 mg/dl 18 mg/dl Creatinine 1.20 mg/dl 1.60 mg/dl Est Creatinine Clear Calc Drug Dose 72.1 ml/min 54.1 ml/min Estimated GFR () 74.7 52.7 Estimated GFR (Non- 64.4 45.5 BUN/Creatinine Ratio 15.9 11.3 Random Glucose 200 mg/dl 191 mg/dl Calcium Level 8.1 mg/dl 7.0 mg/dl Bedside Hemoglobin 13.9 g/dl Bedside Hematocrit 41 % Bedside Sodium 137 mEq/L Bedside Potassium 4.2 mEq/L Bedside Chloride 103 mEq/L Bedside Total CO2 21 mEq/l Bedside Blood Urea Nitrogen 20 mg/dl Bedside Creatinine 1.0 mg/dl Bedside Glucose (other) 200 mg/dl Bedside Ionized Calcium (Tiny) 1.17 mmol/l Total Creatine Kinase 134 U/L Diagnostic Results Radiological imaging and reports were reviewed by myself. Radiologist's Interpretation as follows: R ANGIOGRAPHY LOWER EXT COMBO CLINICAL HISTORY: 61 years-old Male presenting with right knee replacement today, loss of pulse in the foot, foot numbness and tingling. TECHNIQUE: Multidetector CT angiography of the right lower extremity was performed after the administration of intravenous contrast. 3-D volumetric and/or maximum intensity projection (MIP) images were subsequently reconstructed for review. IV contrast: 120 mL of Optiray 320. A dose lowering technique was used consistent with the principles of ALARA (as low as reasonably achievable). Stenosis measurements were based on NASCET-like criteria. COMPARISON: None. CT DOSE (mGy.cm): The estimated cumulative dose is 900.42 mGy.cm. FINDINGS: Oral And Maxillofacial Pathologist topogram: Total right knee arthroplasty. Right external iliac artery patent. Circumferential calcified and noncalcified atherosclerotic plaque at the common femoral, which results in mild narrowing. The superficial and deep right femoral arteries are patent. At the level of the popliteal hiatus, there is complete occlusion of the right popliteal artery immediately distal to the takeoff of a superficial vessel. The right popliteal artery is occluded throughout its course, although poorly assessed at the level of the knee joint secondary to extensive streak artifact arising from the arthroplasty. The tibioperoneal trunk is occluded. Minimal reconstitution of the proximal anterior tibial artery from a collateral vessel with the mid to distal anterior tibial artery not opacified, possibly occluded. The peroneal artery is nonopacified at its origin and proximally but reconstituted in the mid to distal portion by a superficial collateral vessel. The posterior tibial artery is also not opacified proximally but reconstituted in the mid to distal portion by a superficial collateral vessel. Poor opacification of the vessels at the level of the ankle mortise and beyond. Minimal visualization of the left lower extremity within normal limits. Post surgical changes of total right knee arthroplasty with patellar resurfacing. Expected intra-articular and soft tissue emphysema. Overlying surgical skin deloris in place. No acute fracture or hardware complication. No malalignment. Normal muscle bulk. No fluid collection outside of postsurgical change. No soft tissue gas outside of postsurgical change. IMPRESSION: 1. Occlusion of the right popliteal artery at the level of the abductor hiatus and throughout its length. Suspected occlusion or poor opacification of the proximal portions of the branch vessels tibial with reconstitution of flow in the mid to distal peroneal and posterior tibial arteries. The anterior tibial artery is largely non-opacified by collateral vessel. Poor opacification of all vessels at and distal to the ankle. 2. Post surgical changes of total right knee arthroplasty with patellar resurfacing. The report will be called/faxed according to standard departmental protocol. Assessment & Plan (1) Arterial occlusion (2) Ischemia of right lower extremity Reason Critically Ill: 61-year-old male status post RIGHT lower extremity thrombectomy with bypass grafting secondary to acute arterial occlusion after RIGHT total knee arthroplasty. Musculoskeletal - * Ischemic RIGHT Leg secondary to acute RIGHT popliteal artery occlusion s/p RIGHT total knee arthroplasty performed in an outside facility early yesterday ( 11/28): * s/p RLE thrombectomy w/ bypass grafting per Dr. Del Toro. * Will monitor distal pulses closely - specifically RIGHT posterior tibial pulse. * Appreciate Dr. Del Toro's guidance. * Orthopedic consult for evaluation s/p RIGHT Total Knee Arthroplasty. Neuro - * CAM ICU: POSITIVE. * RASS: -2 * SEDATION: Versed, Fentanyl. * Initially on Propofol - d/c 2/2 hypotension. Cardiac - * No known history of cardiac disease. * In the setting of acute arterial occlusion and provided history of poor arterial vessels intraoperatively, must assume patient at risk for similar vessel disease of the coronary arteries. * Said to have underwent unremarkable outpatient stress test p/t surgery per family. * Will monitor serial troponins x3. * Will check fasting Lipid profile. * Monitor on Telemetry. * EKGs for any changes. * Hypotension s/p surgical intervention: * Required IV pushes of Phenylephrine in the OR. * Relatively labile BP with sedative medications. * Changed to Midazolam/Fentanyl. * Phenylephrine gtt per protocol for persistent hypotension. Respiratory - * Endotracheally Intubated: * Settings: AC Volume - 12/600/5/40% * Will plan on sedation vacation with weaning this AM (11/27). * Hope for early extubation. * No known history of lung disease. * Former Smoker. GI - * Prophylaxis: Protonix 40 mg IV. * NPO at this time. * Will hold on diet/tube feeds with hopes of early extubation. RENAL/LYTES - * JERMAIN w/ Cr of 1.6. * Continue IVF with Normosol at 100 mL/hr. * Concern for worsening JERMAIN 2/2 myoglobin release from rhabdomyolysis. * Will trend PRPs/CPKs. * Monitor urine output closely. * Monitor Electrolytes. * Replace appropriately. - * Vazquez Catheter in place. * Strict I&Os. ENDO - * No history of DM or Thyroid Dz. HEME - * Drop in H&H. * Received 1 U PRBCs intraoperatively. * 2nd Unit currently running. * Will monitor H&Hs closely 2/2 blood loss. * Transfuse as needed. ID - * Prophylaxis with Ancef per Dr. Del Toro. * Will watch for s/s of infection in the setting of RLE ischemia. * Monitor fever curve. LINES/IV ACCESS - * PIVs intact. * Vazquez Catheter in place. * Endotracheal Tube in place. DVT PROPHYLAXIS - * Lovenox 30 mg sq q12 hr per surgery. I have personally spent 45 minutes of critical care time in the direct management of this patient. This is a life/limb threatening event. This includes time spent evaluating patient, direct bedside care, chart review, placing orders, interpretation of diagnostic studies, discussion with consultants, patient, and family members, as well as other required patient management activities. This time is exclusive of all separately billable procedures, and teaching time and separate from and in addition to any other critical care service time. Thank you for this consultation allow us to be part of this patient's care. Please refer to my attending physician's documentation for any further recommendations. I have personally evaluated and examined this patient. I agree with assessment and plan of Alicia Love PA-C. I discussed this patient with Dr. Del Toro in the operating room. Patient critically ill due to a limb threatening event of an acute arterial occlusion. He is underwent fasciotomies as well as bypass. He is at risk for acute kidney injury as well as rhabdomyolysis, we will continue to check serial CPKs and monitor his urine output. Continue IV fluid resuscitation. Checked lipid panel as well as triglycerides within acceptable limits.
[2016-11-27 06:00] LABS: ALKALINE PHOSPHATASE 40 U/L (45-117); ALT/SGPT 20 U/L (12-78); AST/SGOT 14 U/L (15-37); CHOLESTEROL 130 mg/dl (0-200); CHOLESTEROL/HDL RATIO 3.8; HDL CHOLESTEROL 34 mg/dl; INR 1.2 (0.9-1.1); LDL CHOLESTEROL CALCULATED 59 mg/dl; PROTHROMBIN TIME (PATIENT) 12.4 SECONDS (9.0-12.0); TRIGLYCERIDES 187 mg/dl (0-150); VERY LOW DENSITY LIPOPROT CALC 37 mg/dl
[2016-11-27] MEDS ORDERED: NORMOSOL R 500 ML IV SCH (06:15)
[2016-11-27] MEDS: ENOXAPARIN 30 MG/0.3 ML SYR SQ SCH ×2 (08:56→20:25)
[2016-11-27] MEDS ORDERED: NORMOSOL R 500 ML IV ONE (09:45)
[2016-11-27 09:50] LABS: BUN/CREATININE RATIO 12.6 (10-20); CALCIUM 6.9 mg/dl (8.5-10.1); CREATININE 1.7 mg/dl (0.60-1.40); POTASSIUM 4.9 mmol/L (3.5-5.1)
[2016-11-27] MEDS: MoRPHine SULFATE 4 MG/ML 1 ML CARP\\VIAL IV PRN (10:07)
--- NOTE | 2016-11-27 10:40 | ORTHOPEDIC CONSULTATION ---
DATE OF CONSULTATION: 11/27/2016 DATE OF CONSULTATION: 11/27/2016 Special attention to right leg. HISTORY OF PRESENT ILLNESS: This is a 61-year-old male who is status post outpatient right total knee replacement done by Dr. Harry in [place]. The patient postoperatively developed a cool foot with decreased pulses. He was sent urgently to [facility], evaluated by Dr. Del Toro and subsequently had an urgent surgery with thrombectomy followed by bypass graft to the right lower extremity. Orthopedics was consulted for routine care of knee replacement. PHYSICAL EXAMINATION: RIGHT LOWER EXTREMITY EXAMINATION: Shows dressing is on the extremity which are dry but blood stained. He can wiggle his toes and he does have a palpable dorsalis pedis pulse on the right. I do not detect any difference in warmth of the right lower extremity compared to the left. ASSESSMENT: Postop day #1 right total knee replacement with subsequent arterial occlusion and subsequent bypass grafting. PLAN: At this point in time for his knee should not require any specific treatment. He may be weightbearing as tolerated. He may be anticoagulated as per the vascular surgery service. We will continue to follow as an inpatient.
[2016-11-27] MEDS ORDERED: PANTOprazole INJ 40 MG in SYRINGE 0 ML IV SCH (11:00)
[2016-11-27] MEDS: ASPIRIN 81 MG ECTAB PO SCH ×2 (11:06→20:25)
--- NOTE | 2016-11-27 11:50 | Progress Note ---
Progress Note Date of Service: Nov 27, 2016. Subjective Able to wiggle toes. Foot still slightly numb. Problem List Medical Problems: (1) Arterial occlusion Status: Acute Objective Vital Signs Vital Signs Past 12 Hours Date Time Temp Pulse Resp B/P (MAP) Pulse Ox O2 Delivery O2 Flow Rate FiO2 11/27/16 10:14 93 11 114/87 (96) 100 Humidified Oxygen 3.0 11/27/16 09:35 30 11/27/16 09:15 107 13 100 11/27/16 09:00 100 9 109/82 (91) 100 11/27/16 08:45 98 18 100 11/27/16 08:30 95 6 124/70 (88) 100 11/27/16 08:15 94 7 89/67 (74) 100 11/27/16 08:00 96 7 90/72 (78) 100 11/27/16 08:00 99 Mechanical Ventilator 30 11/27/16 07:52 30 11/27/16 07:51 36.3 99 9 99/62 (74) 99 Mechanical Ventilator 30 11/27/16 07:45 10 90/64 (73) 99 11/27/16 07:35 30 11/27/16 07:30 40 11/27/16 07:30 6 99/65 (76) 100 11/27/16 07:11 36.2 100 14 92/74 100 11/27/16 06:34 36.7 99 12 104/57 100 11/27/16 06:00 104 12 87/60 100 11/27/16 05:41 36.7 108 12 90/61 100 11/27/16 05:26 36.7 110 12 92/60 100 11/27/16 05:06 40 11/27/16 04:35 36.1 108 12 108/78 100 Mechanical Ventilator 40 11/27/16 04:26 36.4 107 12 92/65 (74) 100 Mechanical Ventilator 40 11/27/16 04:00 100 Mechanical Ventilator 40 11/27/16 04:00 40 11/27/16 03:23 40 11/27/16 03:10 36 110 16 121/75 (84) 100 Mechanical Ventilator 40 11/27/16 03:00 36 95 12 11/27/16 03:00 95 12 91/54 100 11/27/16 02:55 93 12 84/57 100 11/27/16 02:55 92 12 11/27/16 02:52 78/57 11/27/16 02:50 90 12 100 11/27/16 02:50 90 12 11/27/16 02:45 89 12 11/27/16 02:45 89 12 100 11/27/16 02:43 107/65 11/27/16 02:40 87 18 11/27/16 02:40 87 18 100 11/27/16 02:37 189/103 11/27/16 02:30 36.1 84 16 189/103 (121) 100 Mechanical Ventilator 40 Exam VSS Afebrile Dressing of leg intact. Graft still patent. Doppler of PT heard and today also has DP doppler on right leg. Good urine output Laboratory and Microbiology Results Past 24 Hours Test 11/26/16 16:26 11/26/16 16:36 11/27/16 00:31 11/27/16 03:25 Range/Units White Blood Count 13.92 23.31 4.8-10.8 K/uL Red Blood Count 4.54 3.03 4.7-6.1 M/uL Hemoglobin 14.3 11.8 9.5 14.0-18.0 g/dL Hematocrit 40.5 33.6 27.8 42-52 % Mean Corpuscular Volume 89.2 91.7 80-100 fL Mean Corpuscular Hemoglobin 31.5 31.4 25-34 pg Mean Corpuscular Hemoglobin Concent 35.3 34.2 32-36 g/dl Platelet Count 178 187 130-400 K/uL Mean Platelet Volume 9.0 8.3 7.4-10.4 fL Neutrophils (%) (Auto) 94.7 86.2 % Lymphocytes (%) (Auto) 3.3 6.9 % Monocytes (%) (Auto) 1.4 6.2 % Eosinophils (%) (Auto) 0.0 0.0 % Basophils (%) (Auto) 0.1 0.0 % Neutrophils # (Auto) 13.19 20.07 1.4-6.5 K/uL Lymphocytes # (Auto) 0.46 1.61 1.2-3.4 K/uL Monocytes # (Auto) 0.19 1.44 0.11-0.59 K/uL Eosinophils # (Auto) 0.00 0.01 0-0.5 K/uL Basophils # (Auto) 0.01 0.01 0-0.2 K/uL RDW Standard Deviation 40.3 43.3 36.4-46.3 fL RDW Coefficient of Variation 12.6 12.9 11.5-14.5 % Immature Granulocyte % (Auto) 0.5 0.7 % Immature Granulocyte # (Auto) 0.07 0.17 0.00-0.02 K/uL Sodium Level 137 142 136-145 mmol/L Potassium Level 4.2 5.1 3.5-5.1 mmol/L Chloride Level 106 109 98-107 mmol/L Carbon Dioxide Level 22 25 21-32 mmol/L Anion Gap 9.0 19.0 8.0 3-11 mmol/L Blood Urea Nitrogen 19 18 7-18 mg/dl Creatinine 1.20 1.60 0.60-1.40 mg/dl Est Creatinine Clear Calc Drug Dose 72.1 54.1 ml/min Estimated GFR () 74.7 52.7 Estimated GFR (Non- 64.4 45.5 BUN/Creatinine Ratio 15.9 11.3 10-20 Random Glucose 200 191 70-99 mg/dl Calcium Level 8.1 7.0 8.5-10.1 mg/dl Bedside Hemoglobin 13.9 14.0-18.0 g/dl Bedside Hematocrit 41 42-52 % Bedside Sodium 137 135-144 mEq/L Bedside Potassium 4.2 3.3-5.0 mEq/L Bedside Chloride 103 101-112 mEq/L Bedside Total CO2 21 24-31 mEq/l Bedside Blood Urea Nitrogen 20 7-18 mg/dl Bedside Creatinine 1.0 0.6-1.3 mg/dl Bedside Glucose (other) 200 70-99 mg/dl Bedside Ionized Calcium (Tiny) 1.17 1.12-1.32 mmol/l Prothrombin Time 12.4 9.0-12.0 SECONDS Prothromb Time International Ratio 1.2 0.9-1.1 Total Bilirubin 0.5 0.2-1 mg/dl Direct Bilirubin 0.1 0-0.2 mg/dl Aspartate Amino Transf (AST/SGOT) 14 15-37 U/L Alanine Aminotransferase (ALT/SGPT) 20 12-78 U/L Alkaline Phosphatase 40 45-117 U/L Total Creatine Kinase 134 39-308 U/L Troponin I < 0.015 0-0.045 ng/ml Total Protein 4.8 6.4-8.2 gm/dl Albumin 2.8 3.4-5.0 gm/dl Triglycerides Level 187 0-150 mg/dl Cholesterol Level 130 0-200 mg/dl HDL Cholesterol 34 mg/dl LDL Cholesterol, Calculated 59 mg/dl VLDL Cholesterol, Calculated 37 mg/dl Cholesterol/HDL Ratio 3.8 Test 11/27/16 09:13 Range/Units Hemoglobin 10.2 14.0-18.0 g/dL Hematocrit 30.0 42-52 % Sodium Level 141 136-145 mmol/L Potassium Level 4.9 3.5-5.1 mmol/L Chloride Level 109 98-107 mmol/L Carbon Dioxide Level 24 21-32 mmol/L Anion Gap 8.0 3-11 mmol/L Blood Urea Nitrogen 22 7-18 mg/dl Creatinine 1.70 0.60-1.40 mg/dl Est Creatinine Clear Calc Drug Dose 55.0 ml/min Estimated GFR () 49.0 Estimated GFR (Non- 42.3 BUN/Creatinine Ratio 12.6 10-20 Random Glucose 146 70-99 mg/dl Calcium Level 6.9 8.5-10.1 mg/dl Total Creatine Kinase 743 39-308 U/L Microbiology Results 11/27/16 MRSA DNA Surveillance Screen - Final, Complete Specimen Negative for MRSA by DNA Probe Imp: Post revasc right leg Plan: Foot viable. Will start PT/OT Can place vac on anterior compartment fasciotomy. Creatinine slightly elevated. Will continue fluids for another 24 hours. Transfer to telemetry
[2016-11-27] MEDS ORDERED: ONDANSETRON 4MG OD TAB SL PRN (12:00)
[2016-11-27] MEDS: D5W AND 1/2NSS 1,000 ML IV SCH ×2 (12:18→23:16)
[2016-11-27] MEDS: OXYCODONE/ACETAMINOPHEN 5-325 TAB PO PRN ×3 (12:22→20:28)
[2016-11-27 13:03] LABS: URINE APPEARANCE CLEAR (CLEAR); URINE BILIRUBIN NEG (NEG); URINE COLOR YELLOW; URINE NITRITE NEG (NEG); URINE SPECIFIC GRAVITY 1.039 (1.000-1.030); UROBILINOGEN NEG (NEG); ZZURINE CULT IF INDIC CATH NO
[2016-11-27 13:05] LABS: MANUAL MICROSCOPIC REQUIRED? NO; REVIEW REQ? YES
[2016-11-27 13:15] LABS: URINE PATH CASTS 0-3 GRANULAR CASTS /lpf (0)
[2016-11-27] MEDS: CeleBREX 200 MG CAP PO PRN (13:30)
--- NOTE | 2016-11-27 14:27 | Critical Care Progress Note ---
Critical Care Progress Note Date of Service Nov 27, 2016. ICU Day ICU Day Number: [address] Meyer Subjective The patient was seen and examined at bedside. Pt is intubated and sedated. He is however eye tracking and can nod yes and no to questions. *Update: After extubation pt was well appearing* Plan of care was described to the patient and all questions were answered. Objective VITAL SIGNS - Vital signs and nursing notes were reviewed. GENERAL - 61-year-old male appearing his stated age who is in no acute distress. Once extubated pt appeared in no distress. HEAD - NC/AT. EYES - Sluggish Pupils with EOMI bilaterally. Sclera anicteric. Palpebral conjunctiva pink and moist with no injection noted. EARS - No deformities of external structures noted on gross examination bilaterally. NOSE - Midline and without cyanosis. No epistaxis or purulent drainage noted. Septum midline without deviation or septal hematoma noted. MOUTH/OROPHARYNX - Without perioral cyanosis. Endotracheally intubated. NECK - Supple to palpation. LUNGS - Chest wall symmetric without accessory muscle use, intercostals retractions, or central cyanosis. Normal vesicular breath sounds CTA B/L. No wheezes, rales, or rhonchi appreciated. CARDIAC - RRR with S1/S2. No murmur, rubs, or gallops appreciated. ABDOMEN - Abdominal contour obese without pulsations or visible masses. BS normoactive all four quadrants. EXTREMITIES - Bilateral surgical incisions noted to the RIGHT lower extremity. Slight mottling of the RIGHT Foot. Right DP pulse slightly pulsatile, right foot is warmer than the left. PT has FROM in the toes. NEUROLOGIC/PSYCH -Appropriate mood and affect after being extubated, alert and oriented to person place and time. Current SOFA Score SOFA Score Response (Comments) Value Platelets (x10) > 150 0 Bilirubin (mg/dL) < 1.2 0 [place] Coma Score 15 0 Level of Hypotension No Hypotension 0 Creatinine (mg/dL) 1.2 - 1.9 1 Total 1 Assessment & Plan Reason Critically Ill: 61-year-old male status post RIGHT lower extremity thrombectomy with bypass grafting secondary to acute arterial occlusion after RIGHT total knee arthroplasty. Patient is stable enough to transfer to telemetry. Musculoskeletal - * Ischemic RIGHT Leg secondary to acute RIGHT popliteal artery occlusion s/p RIGHT total knee arthroplasty performed in an outside facility early yesterday ( 11/28): * s/p RLE thrombectomy w/ bypass grafting per Dr. Del Toro. * Will monitor distal pulses closely - specifically RIGHT posterior tibial pulse. * Appreciate Dr. Del Toro's guidance. * Orthopedic consult for evaluation s/p RIGHT Total Knee Arthroplasty. * Anticoagulation: Lovenox 30mg BID + ASA 81mg Neuro - * CAM ICU: Negative. Pt was extubated in the AM. * SEDATION: Versed (Medazolam), Fentanyl. * Initially on Propofol - d/c 2/2 hypotension. Cardiac - * Trops negative x 1. * EKGs for any changes. * Hypotension s/p surgical intervention: * Required IV pushes of Phenylephrine in the OR. * Did not require any pressors on the floor. Respiratory - * Endotracheally Extubated and doing well on room air. * Former Smoker, 40 pack year smoking history. GI - * Prophylaxis: Protonix 40 mg IV. * Diet: DM2 Heart Healthy diet. RENAL/LYTES - * JERMAIN w/ Cr of 1.6. * Continue IVF with Normosol at 150 mL/hr. * Concern for worsening JERMAIN 2/2 myoglobin release from rhabdomyolysis. * Will trend PRPs/CPKs. * Monitor urine output closely. * Monitor Electrolytes. * Replace appropriately. - * Vazquez Catheter in place. * Strict I&Os. ENDO - * No history of DM or Thyroid Dz. HEME - * Drop in H&H. * Received 1 U PRBCs intraoperatively. * 2nd Unit currently running. * Will monitor H&Hs closely 2/2 blood loss. * Transfuse as needed. ID - * Prophylaxis with Ancef per Dr. Del Toro. * Will watch for s/s of infection in the setting of RLE ischemia. * Monitor fever curve. LINES/IV ACCESS - * PIVs intact. * Vazquez Catheter in place. DVT PROPHYLAXIS - * Lovenox 30 mg sq q12 hr per surgery. FULL CODE Resident Physician Supervision Note: Dr. Lee was resident physician during care of patient. I separately evaluated patient and did history and exam. I discussed the case with the resident and generally agree with the findings and plan. Upon my evaluation of the patient later in the afternoon there was significant improvement and the patient's perfusion to his right lower extremity. On a repeat troponin testing the patient had a mild elevation. I suspect that this is secondary to the stress of undergoing 2 surgeries and the relative cardiovascular demands placed upon the heart. There were periods of hypotension requiring vasoactive medication administration while in the operating room. The patient reports that he passed a stress test several years ago and has had stable EKG changes over the last 4 years which is why he did not undergo stress testing prior to his elective knee replacement. I do not believe that this troponin leak represents an ST elevation myocardial infarction. EKG dated 11/28/2016 at 0 753 reveals normal sinus rhythm and incomplete right bundle branch block with a prolonged QTC at 495. There is no evidence of myocardial ischemia at this time. Currently the biggest risk factor for cardiac disease would be the patient smoking. He states that he will give up smoking from this point forward, last modification, healthy eating , active exercise, and healthy lifestyle will be the best course of action for his vascular disease. Documented By: Mustapha Meyer DO Consults & Procedures Consultants: Vascular Surgery (Dr. Del Toro) Orthopedic Surgery Hair Boiler Operator Procedures: Intubation Data Medications: Current Inpatient Medications Medications (Trade) Dose Ordered Sig/Sondra Route Start Time Stop Time Status Last Admin Dose Admin Ioversol (Optiray 320) 100 ml UD PRN IV 11/26/16 16:30 11/30/16 16:29 Morphine Sulfate (MoRPHine SULFATE INJ) If PO analgesic is orde... Q2H PRN IV 11/27/16 02:30 12/11/16 02:29 Cefazolin Sodium 2000 mg/Dextrose 60 ml @ 100 mls/hr Q8H IV 11/27/16 04:00 11/27/16 12:35 11/27/16 04:21 100 MLS/HR Enoxaparin Sodium (Lovenox Inj) 30 mg Q12H SQ 11/27/16 08:00 12/27/16 07:59 Aspirin (Ecotrin Tab) 81 mg BID PO 11/27/16 09:00 12/27/16 08:59 Parenteral Electrolyte Solution 1,000 ml @ 150 mls/hr Q6H40M IV 11/27/16 03:15 12/27/16 03:14 11/27/16 04:08 100 MLS/HR Fentanyl Citrate (Fentanyl Inj) 50 mcg Q1H PRN IV 11/27/16 03:30 12/11/16 03:29 Pantoprazole Sodium 40 mg/ Syringe 10 ml @ 5 mls/min DAILY@1100 IV 10/14/17 11:00 12/27/16 10:59 Phenylephrine HCl 20 mg/Dextrose 502 ml @ 0 mls/hr Q0M PRN IV 11/27/16 03:18 12/27/16 03:17 Ephedrine Sulfate (EpHEDrine SULFATE INJ) 5 mg Q5M PRN IV 11/27/16 03:45 11/27/16 10:00 Atropine Sulfate (Atropine Sulfate 0.1MG/Ml Inj) 0.5 mg Q1M PRN IV 11/27/16 03:45 11/27/16 10:00 Midazolam HCl 250 ml @ 0 mls/hr Q0M PRN IV 11/27/16 03:45 12/27/16 03:44 11/27/16 04:02 2 MLS/HR Vital Signs: Date Time Temp Pulse Resp B/P (MAP) Pulse Ox O2 Delivery O2 Flow Rate FiO2 11/27/16 07:11 36.2 100 14 92/74 100 11/27/16 06:34 36.7 99 12 104/57 100 11/27/16 06:00 104 12 87/60 100 11/27/16 05:41 36.7 108 12 90/61 100 11/27/16 05:26 36.7 110 12 92/60 100 11/27/16 05:06 40 11/27/16 04:35 36.1 108 12 108/78 100 Mechanical Ventilator 40 11/27/16 04:26 36.4 107 12 92/65 (74) 100 Mechanical Ventilator 40 11/27/16 04:00 100 Mechanical Ventilator 40 11/27/16 04:00 40 11/27/16 03:23 40 11/27/16 03:10 36 110 16 121/75 (84) 100 Mechanical Ventilator 40 11/27/16 03:00 36 95 12 11/27/16 03:00 95 12 91/54 100 11/27/16 02:55 93 12 84/57 100 11/27/16 02:55 92 12 11/27/16 02:52 78/57 11/27/16 02:50 90 12 100 11/27/16 02:50 90 12 11/27/16 02:45 89 12 11/27/16 02:45 89 12 100 11/27/16 02:43 107/65 11/27/16 02:40 87 18 11/27/16 02:40 87 18 100 11/27/16 02:37 189/103 11/27/16 02:30 36.1 84 16 189/103 (121) 100 Mechanical Ventilator 40 11/26/16 18:58 88 15 159/82 95 11/26/16 17:37 66 11/26/16 17:29 63 15 131/70 95 Room Air 11/26/16 16:02 36.9 71 18 149/85 96 Room Air Laboratory Results: Last 24 Hours Test 11/26/16 16:26 11/26/16 16:36 11/27/16 00:31 11/27/16 03:25 White Blood Count 13.92 K/uL 23.31 K/uL Red Blood Count 4.54 M/uL 3.03 M/uL Hemoglobin 14.3 g/dL 11.8 g/dL 9.5 g/dL Hematocrit 40.5 % 33.6 % 27.8 % Mean Corpuscular Volume 89.2 fL 91.7 fL Mean Corpuscular Hemoglobin 31.5 pg 31.4 pg Mean Corpuscular Hemoglobin Concent 35.3 g/dl 34.2 g/dl Platelet Count 178 K/uL 187 K/uL Mean Platelet Volume 9.0 fL 8.3 fL Neutrophils (%) (Auto) 94.7 % 86.2 % Lymphocytes (%) (Auto) 3.3 % 6.9 % Monocytes (%) (Auto) 1.4 % 6.2 % Eosinophils (%) (Auto) 0.0 % 0.0 % Basophils (%) (Auto) 0.1 % 0.0 % Neutrophils # (Auto) 13.19 K/uL 20.07 K/uL Lymphocytes # (Auto) 0.46 K/uL 1.61 K/uL Monocytes # (Auto) 0.19 K/uL 1.44 K/uL Eosinophils # (Auto) 0.00 K/uL 0.01 K/uL Basophils # (Auto) 0.01 K/uL 0.01 K/uL RDW Standard Deviation 40.3 fL 43.3 fL RDW Coefficient of Variation 12.6 % 12.9 % Immature Granulocyte % (Auto) 0.5 % 0.7 % Immature Granulocyte # (Auto) 0.07 K/uL 0.17 K/uL Sodium Level 137 mmol/L 142 mmol/L Potassium Level 4.2 mmol/L 5.1 mmol/L Chloride Level 106 mmol/L 109 mmol/L Carbon Dioxide Level 22 mmol/L 25 mmol/L Anion Gap 9.0 mmol/L 19.0 mmol/L 8.0 mmol/L Blood Urea Nitrogen 19 mg/dl 18 mg/dl Creatinine 1.20 mg/dl 1.60 mg/dl Est Creatinine Clear Calc Drug Dose 72.1 ml/min 54.1 ml/min Estimated GFR () 74.7 52.7 Estimated GFR (Non- 64.4 45.5 BUN/Creatinine Ratio 15.9 11.3 Random Glucose 200 mg/dl 191 mg/dl Calcium Level 8.1 mg/dl 7.0 mg/dl Bedside Hemoglobin 13.9 g/dl Bedside Hematocrit 41 % Bedside Sodium 137 mEq/L Bedside Potassium 4.2 mEq/L Bedside Chloride 103 mEq/L Bedside Total CO2 21 mEq/l Bedside Blood Urea Nitrogen 20 mg/dl Bedside Creatinine 1.0 mg/dl Bedside Glucose (other) 200 mg/dl Bedside Ionized Calcium (Tiny) 1.17 mmol/l Prothrombin Time 12.4 SECONDS Prothromb Time International Ratio 1.2 Total Bilirubin 0.5 mg/dl Direct Bilirubin 0.1 mg/dl Aspartate Amino Transf (AST/SGOT) 14 U/L Alanine Aminotransferase (ALT/SGPT) 20 U/L Alkaline Phosphatase 40 U/L Total Creatine Kinase 134 U/L Troponin I < 0.015 ng/ml Total Protein 4.8 gm/dl Albumin 2.8 gm/dl Triglycerides Level 187 mg/dl Cholesterol Level 130 mg/dl HDL Cholesterol 34 mg/dl LDL Cholesterol, Calculated 59 mg/dl VLDL Cholesterol, Calculated 37 mg/dl Cholesterol/HDL Ratio 3.8 Resident Involvement: Resident Care Provided Care Provided: Adult [facility]
[2016-11-27] MEDS: WARFARIN SOD 5 MG TAB PO SCH (16:10)
[2016-11-27] MEDS: DOCUSATE SODIUM 100 MG CAP PO PRN (21:16)
[2016-11-28] VITALS (16 sets, daily range): BP systolic 95–123; BP diastolic 52–71; PULSE 71–98; TEMP 36.4–37.1; O2SAT 94–100
[2016-11-28] MEDS: OXYCODONE/ACETAMINOPHEN 5-325 TAB PO PRN ×5 (00:30→20:19)
[2016-11-28] MEDS: MoRPHine SULFATE 4 MG/ML 1 ML CARP\\VIAL IV PRN ×5 (02:11→23:32)
[2016-11-28 05:26] LABS: BASO % 0.2 %; BASO ABS # 0.03 K/uL (0-0.2); EOS % 0.6 %; HEMATOCRIT 21.6 % (42-52); IG% 0.9 %; LYMPH % 17.9 %; LYMPH ABS # 2.91 K/uL (1.2-3.4); MEAN CELL VOLUME 91.9 fL (80-100); MEAN CORPUSCULAR HEMOGLOBIN 31.5 pg (25-34); MEAN CORPUSCULAR HGB CONC 34.3 g/dl (32-36); MEAN PLATELET VOLUME 8.5 fL (7.4-10.4); NEUT % 65.4 %; PLATELET COUNT 126 K/uL (130-400); RED BLOOD COUNT 2.35 M/uL (4.7-6.1); WHITE BLOOD COUNT 16.22 K/uL (4.8-10.8)
[2016-11-28 05:36] LABS: PARTIAL THROMBOPLASTIN RATIO 1.2
[2016-11-28 05:49] LABS: COMPLETE YES
[2016-11-28 06:00] LABS: BUN/CREATININE RATIO 15.3 (10-20); CALCIUM 6.4 mg/dl (8.5-10.1); CREATININE 1.8 mg/dl (0.60-1.40); POTASSIUM 4.2 mmol/L (3.5-5.1)
[2016-11-28 06:03] LABS: PHOSPHORUS 2.9 mg/dl (2.5-4.9)
[2016-11-28] MEDS: CeleBREX 200 MG CAP PO PRN (07:00)
[2016-11-28] MEDS: ASPIRIN 81 MG ECTAB PO SCH ×2 (08:05→20:20)
[2016-11-28] MEDS: OMEGA-3 (PURIFIED FISH OIL) 1 GM CAP PO SCH (08:05)
[2016-11-28] MEDS: ENOXAPARIN 30 MG/0.3 ML SYR SQ SCH ×2 (08:05→20:20)
[2016-11-28] MEDS: CHOLECALCIFEROL 1000 INTER.UNIT TAB PO SCH (08:05)
[2016-11-28] MEDS: MELOXICAM 7.5 MG TAB PO SCH (08:06)
--- NOTE | 2016-11-28 09:47 | PROGRESS NOTE ---
DATE: 11/28/2016 SUBJECTIVE: Andres is seen at the bedside today. He notes appropriate amount of pain in the right lower extremity. Denies other complaints. OBJECTIVE: Right lower extremity examination shows dressings which are dry but are blood stained. He has a palpable dorsalis pedis pulse. He can wiggle his toes. His foot is warm, slightly warmer than the contralateral side. ASSESSMENT: 1. Postop day #2 status post total knee replacement. 2. Status post arterial bypass by Dr. Del Toro for acute ischemia. PLAN: At this point in time, he may continue to be weightbearing as tolerated on the right lower extremity, will defer activity level and weightbearing to Dr. Del Toro, however. When he is cleared for physical therapy, we may begin physical therapy on the leg, but I would defer to Dr. Del Toro. We will continue to follow.
--- NOTE | 2016-11-28 09:58 | Progress Note ---
Progress Note Date of Service: Nov 28, 2016. Subjective No new complaints today, able to move foot and toes Problem List Medical Problems: (1) Arterial occlusion Status: Acute Objective Vital Signs Vital Signs Past 12 Hours Date Time Temp Pulse Resp B/P (MAP) Pulse Ox O2 Delivery O2 Flow Rate FiO2 11/28/16 09:22 36.6 71 13 121/64 97 2.0 11/28/16 09:01 36.4 77 9 116/59 96 2.0 11/28/16 08:33 36.5 97 14 95/52 94 11/28/16 08:14 36.4 95 11 115/67 97 11/28/16 08:02 36.6 98 19 102/59 (73) 98 Room Air 11/28/16 07:47 Room Air 11/28/16 04:33 36.8 90 18 121/63 (82) 95 Room Air 11/28/16 04:00 100 Room Air 11/27/16 23:59 100 Room Air 11/27/16 23:19 37.0 99 16 117/66 (83) 97 Room Air Exam Awake and alert VSS Afebrile Dressings intact Good right DP to doppler and very good PT to doppler No neuro deficits Hbg low today, no active bleeding seen Creat 1.8 Troponin trending downward Laboratory and Microbiology Results Past 24 Hours Test 11/27/16 11:40 11/27/16 12:15 11/27/16 15:14 11/27/16 16:32 Range/Units Bedside Glucose 131 70-99 mg/dl Urine Color YELLOW Urine Appearance CLEAR CLEAR Urine pH 5.0 4.5-7.5 Urine Specific [place] 1.039 1.000-1.030 Urine Protein NEG NEG Urine Glucose (UA) NEG NEG Urine Ketones NEG NEG Urine Occult Blood NEG NEG Urine Nitrite NEG NEG Urine Bilirubin NEG NEG Urine Urobilinogen NEG NEG Urine Leukocyte Esterase NEG NEG Urine WBC (Auto) 1-5 0-5 /hpf Urine RBC (Auto) 0-4 0-4 /hpf Urine Hyaline Casts (Auto) >30 0-5 /lpf Urine Epithelial Cells (Auto) 10-20 0-5 /lpf Urine Bacteria (Auto) NEG NEG Urine Pathogenic Casts 0-3 GRANULAR CASTS 0 /lpf Total Creatine Kinase 2655 39-308 U/L Troponin I 0.065 0-0.045 ng/ml Test 11/28/16 05:11 Range/Units White Blood Count 16.22 4.8-10.8 K/uL Red Blood Count 2.35 4.7-6.1 M/uL Hemoglobin 7.4 14.0-18.0 g/dL Hematocrit 21.6 42-52 % Mean Corpuscular Volume 91.9 80-100 fL Mean Corpuscular Hemoglobin 31.5 25-34 pg Mean Corpuscular Hemoglobin Concent 34.3 32-36 g/dl Platelet Count 126 130-400 K/uL Mean Platelet Volume 8.5 7.4-10.4 fL Neutrophils (%) (Auto) 65.4 % Lymphocytes (%) (Auto) 17.9 % Monocytes (%) (Auto) 15.0 % Eosinophils (%) (Auto) 0.6 % Basophils (%) (Auto) 0.2 % Neutrophils # (Auto) 10.59 1.4-6.5 K/uL Lymphocytes # (Auto) 2.91 1.2-3.4 K/uL Monocytes # (Auto) 2.44 0.11-0.59 K/uL Eosinophils # (Auto) 0.10 0-0.5 K/uL Basophils # (Auto) 0.03 0-0.2 K/uL RDW Standard Deviation 45.7 36.4-46.3 fL RDW Coefficient of Variation 13.9 11.5-14.5 % Immature Granulocyte % (Auto) 0.9 % Immature Granulocyte # (Auto) 0.15 0.00-0.02 K/uL Red Blood Cell Morphology Unremarkable Activated Partial Thromboplast Time 31.2 21.0-31.0 SECONDS Partial Thromboplastin Ratio 1.2 Sodium Level 138 136-145 mmol/L Potassium Level 4.2 3.5-5.1 mmol/L Chloride Level 104 98-107 mmol/L Carbon Dioxide Level 26 21-32 mmol/L Anion Gap 8.0 3-11 mmol/L Blood Urea Nitrogen 28 7-18 mg/dl Creatinine 1.80 0.60-1.40 mg/dl Est Creatinine Clear Calc Drug Dose 54.1 ml/min Estimated GFR () 45.7 Estimated GFR (Non- 39.5 BUN/Creatinine Ratio 15.3 10-20 Random Glucose 122 70-99 mg/dl Calcium Level 6.4 8.5-10.1 mg/dl Phosphorus Level 2.9 2.5-4.9 mg/dl Magnesium Level 2.0 1.8-2.4 mg/dl Total Bilirubin 0.5 0.2-1 mg/dl Direct Bilirubin 0.1 0-0.2 mg/dl Aspartate Amino Transf (AST/SGOT) 82 15-37 U/L Alanine Aminotransferase (ALT/SGPT) 27 12-78 U/L Alkaline Phosphatase 38 45-117 U/L Troponin I 0.055 0-0.045 ng/ml Total Protein 4.8 6.4-8.2 gm/dl Albumin 2.6 3.4-5.0 gm/dl Imp: Post revasc right leg Increase creatinine Plan: Will continue to rehydrate Start PT Transfer to floor
[2016-11-28] MEDS: D5W AND 1/2NSS 1,000 ML IV SCH ×3 (12:46→18:15)
[2016-11-28] MEDS: WARFARIN SOD 5 MG TAB PO SCH (15:38)
--- NOTE | 2016-11-28 21:52 | Progress Note ---
Post ICU Progress Note Date & Time Nov 28, 2016 at 21:41 Vital Signs Vital Signs Past 12 Hours Date Time Temp Pulse Resp B/P (MAP) Pulse Ox O2 Delivery O2 Flow Rate FiO2 11/28/16 15:25 Room Air 11/28/16 15:08 36.8 76 18 111/67 (82) 97 Room Air 11/28/16 11:45 36.7 92 16 109/58 98 11/28/16 11:21 36.6 72 9 109/59 100 11/28/16 11:04 36.5 75 9 100 2.0 11/28/16 10:40 36.5 75 9 103/60 100 2.0 11/28/16 10:21 36.6 72 10 97/57 99 2.0 11/28/16 10:04 36.6 97 13 97 2.0 11/28/16 10:02 36.6 97 13 118/65 97 2.0 Notes Mental Status: alert / awake Nausea / Vomiting: adequately controlled Pain: adequately controlled Airway Patency, RR, SpO2: stable & adequate BP & HR: stable & adequate Mr. Crystal was admitted to the ICU in the drugless physician hours of 11/27 s/p RLE thrombectomy w/ grafting after suffering an ischemic RLE after elective RIGHT total knee arthroplasty performed in the outpatient setting. He was initially accepted to the ICU ventilated and sedated. He was extubated later in the day and has since improved. His CPK has trended up slightly. His troponins peaked. All of these are expected given the extent of the patient's presenting pathology and surgical intervention. He has required a total of 3 U PRBCs. He suffered a slight JERMAIN with a current Cr of 1.8. Overall, the patient has progressed nicely despite his initial presentation. He is weight-bearing at this point. He reports sensation and FROM of the B/L feet. 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 Otherwise , he reports feeling much better and is optimistic for continued improvement. Consider outpatient follow up in 1 to 2 weeks with: With Vascular Surgery and Ortho as scheduled. Repeat imaging needed: Per Dr. Del Toro. Follow up cultures: N/A Reviewed progress notes, labs, and inpatient medication list Continue current management Additional recommendations: Might suggest psych social worker if applicable as patient and family are concerned for returning home in current state. Concerns may certainly be alleviated as patient is evaluated/treated from a PT/OT standpoint. At this point, Critical Care services will sign off on patient. Thank you for allowing us to participate in the care of this patient. Please feel free to reconsult as needed. Consults & Procedures Consultants: Vascular Surgery (Dr. Del Toro) Orthopedic Surgery Professor Of Visual Arts Procedures: Intubation
[2016-11-29] MEDS: OXYCODONE/ACETAMINOPHEN 5-325 TAB PO PRN ×5 (00:33→22:58)
[2016-11-29] MEDS: D5W AND 1/2NSS 1,000 ML IV SCH ×3 (01:57→22:04)
[2016-11-29] MEDS: MoRPHine SULFATE 4 MG/ML 1 ML CARP\\VIAL IV PRN ×4 (03:02→13:30)
[2016-11-29 07:00] VITALS: BP 119/72; PULSE 81; TEMP 37.1; O2SAT 95
[2016-11-29] MEDS: POLYETHYLENE (MIRALAX) 17 GM PACK PO SCH (08:12)
[2016-11-29] MEDS: OMEGA-3 (PURIFIED FISH OIL) 1 GM CAP PO SCH (08:12)
[2016-11-29] MEDS: ASPIRIN 81 MG ECTAB PO SCH ×2 (08:12→20:20)
[2016-11-29] MEDS: ENOXAPARIN 30 MG/0.3 ML SYR SQ SCH ×2 (08:12→20:19)
[2016-11-29] MEDS: MELOXICAM 7.5 MG TAB PO SCH (08:13)
[2016-11-29] MEDS: CHOLECALCIFEROL 1000 INTER.UNIT TAB PO SCH (08:13)
--- NOTE | 2016-11-29 08:25 | Orthopedic Progress Note ---
Orthopedic Progress Note Date of Service Nov 29, 2016. Subjective Post OP Day: 2 Reports: feeling well, Denies: chest pain, SOB, nausea / vomiting, light headedness, calf pain Objective calves soft nontender, N/V intact, dressing C/D/I, A&O x3, toes mobile GROIN/UPPER THIGH DRESSING WITH MILD SEROUS DRAINAGE. KNEE DRESSING CDI WITH SILVER DRESSING BELOW. TIBIAL DRESSING WITH MOD SEROANG DRAINAGE. FOOT AND TOES ARE WARM AND MOBILE. Date Time Temp Pulse Resp B/P (MAP) Pulse Ox O2 Delivery O2 Flow Rate FiO2 11/29/16 07:21 Room Air 11/29/16 07:00 37.1 81 19 119/72 (88) 95 Room Air 11/28/16 23:25 Room Air 11/28/16 23:22 37.1 88 16 123/71 (88) 95 Room Air 11/28/16 15:25 Room Air 11/28/16 15:08 36.8 76 18 111/67 (82) 97 Room Air 11/28/16 11:45 36.7 92 16 109/58 98 11/28/16 11:21 36.6 72 9 109/59 100 11/28/16 11:04 36.5 75 9 100 2.0 11/28/16 10:40 36.5 75 9 103/60 100 2.0 11/28/16 10:21 36.6 72 10 97/57 99 2.0 11/28/16 10:04 36.6 97 13 97 2.0 11/28/16 10:02 36.6 97 13 118/65 97 2.0 11/28/16 09:22 36.6 71 13 121/64 97 2.0 11/28/16 09:01 36.4 77 9 116/59 96 2.0 11/28/16 08:33 36.5 97 14 95/52 94 Assessment & Plan Assessment: SP RIGHT TKA 11/26 AT ACS WITH COMPLETE OCCLUSION POD#2 RLE FEM/POP BYPASS ACUTE BLOOD LOSS ANEMIA Plan: PT/OT AT BEDSIDE WHEN OK WITH DR. SHARMA PAIN MANAGEMENT DVT PROPH- LOVENOX 30 BID ANEMIA- HGB 7.4 YESTERDAY. WILL RECHEK TODAY. PENDING RESULTS MAY CONSIDER 1-2 UNITS. PATIENT IS ASYMPTOMATIC SITTING UP IN BED. WILL SEE HOW HE TOLERATES AMBULATION TODAY. HE IS RELATIVELY HEALTHY, WILL DEFER TO PRIMARY SERVICE.
[2016-11-29 09:10] LABS: BASO % 0.2 %; BASO ABS # 0.02 K/uL (0-0.2); EOS % 2.3 %; HEMATOCRIT 23.1 % (42-52); IG% 1.2 %; LYMPH % 21.4 %; LYMPH ABS # 2.35 K/uL (1.2-3.4); MEAN CELL VOLUME 89.2 fL (80-100); MEAN CORPUSCULAR HEMOGLOBIN 31.3 pg (25-34); MEAN CORPUSCULAR HGB CONC 35.1 g/dl (32-36); MEAN PLATELET VOLUME 8.6 fL (7.4-10.4); MONO % 16.1 %; NEUT % 58.8 %; PLATELET COUNT 120 K/uL (130-400); RED BLOOD COUNT 2.59 M/uL (4.7-6.1); WHITE BLOOD COUNT 10.97 K/uL (4.8-10.8)
[2016-11-29 09:45] LABS: COMPLETE YES
--- NOTE | 2016-11-29 11:27 | Progress Note ---
Progress Note Date of Service: Nov 29, 2016. Subjective 61 yo m POD #3 after RLE fem-distal post tib in situ bypass after popliteal art occlusion post R total knee replacement, seen in f/u today. Pt states pain in R knee only. Denies dizziness, chest pain, SOB, other complaints. Problem List Medical Problems: (1) Arterial occlusion Status: Acute Objective Vital Signs Vital Signs Past 12 Hours Date Time Temp Pulse Resp B/P (MAP) Pulse Ox O2 Delivery O2 Flow Rate FiO2 11/29/16 07:21 Room Air 11/29/16 07:00 37.1 81 19 119/72 (88) 95 Room Air 11/28/16 23:25 Room Air 11/28/16 23:22 37.1 88 16 123/71 (88) 95 Room Air Exam CONST: A&O x4, NAD, healthy appearing male CHEST: RRR lungs ctab ABD: soft, nontender, +bs x 4 quad EXT: RLE lateral fasciotomy with bulging, pink muscle and blood tinged serous drainage from all incisions. Other wound intact with deloris without erythema noted. +3 edema RLE. Knee wound with local ecchymosis and blisters noted. + palpable pulse in bypass and faintly palpable DP. Toes warm and pink. ALMONTE. Laboratory and Microbiology Results Past 24 Hours Test 11/29/16 08:52 Range/Units White Blood Count 10.97 4.8-10.8 K/uL Red Blood Count 2.59 4.7-6.1 M/uL Hemoglobin 8.1 14.0-18.0 g/dL Hematocrit 23.1 42-52 % Mean Corpuscular Volume 89.2 80-100 fL Mean Corpuscular Hemoglobin 31.3 25-34 pg Mean Corpuscular Hemoglobin Concent 35.1 32-36 g/dl Platelet Count 120 130-400 K/uL Mean Platelet Volume 8.6 7.4-10.4 fL Neutrophils (%) (Auto) 58.8 % Lymphocytes (%) (Auto) 21.4 % Monocytes (%) (Auto) 16.1 % Eosinophils (%) (Auto) 2.3 % Basophils (%) (Auto) 0.2 % Neutrophils # (Auto) 6.45 1.4-6.5 K/uL Lymphocytes # (Auto) 2.35 1.2-3.4 K/uL Monocytes # (Auto) 1.77 0.11-0.59 K/uL Eosinophils # (Auto) 0.25 0-0.5 K/uL Basophils # (Auto) 0.02 0-0.2 K/uL RDW Standard Deviation 49.8 36.4-46.3 fL RDW Coefficient of Variation 15.1 11.5-14.5 % Immature Granulocyte % (Auto) 1.2 % Immature Granulocyte # (Auto) 0.13 0.00-0.02 K/uL Red Blood Cell Morphology Unremarkable ASSESSMENT and PLAN: s/p RLE fem-distal post tib in situ bypass Ischemic RLE d/t pop art occlusion post R total knee arthroplasty Expected post op anemia Pt doing well post op. Wound vac placed to R lateral leg fasciotomy. RN to place light dressing to RLE other wounds until drainage ceases. To be changed daily and when saturated. Will require outpt home nursing setup for vac changes M/W/F. Ok for PT/OT as rec by ortho. WBAT from vascular standpoint.
[2016-11-29 15:01] VITALS: BP 105/57; PULSE 85; TEMP 37.1; O2SAT 93
[2016-11-29 15:05] VITALS: BP 114/65; PULSE 87; O2SAT 96
[2016-11-29] MEDS: WARFARIN SOD 5 MG TAB PO SCH (15:42)
[2016-11-29 23:20] VITALS: BP 118/71; PULSE 87; TEMP 38; O2SAT 95
[2016-11-29 23:29] VITALS: TEMP 37
[2016-11-30] VITALS (14 sets, daily range): BP systolic 108–146; BP diastolic 64–76; PULSE 67–80; TEMP 36.3–37.4; O2SAT 93–99
[2016-11-30] MEDS: OXYCODONE/ACETAMINOPHEN 5-325 TAB PO PRN ×5 (04:05→23:17)
[2016-11-30 06:33] LABS: BASO % 0.2 %; BASO ABS # 0.02 K/uL (0-0.2); EOS % 2.5 %; HEMATOCRIT 21.4 % (42-52); IG% 2.2 %; LYMPH % 23.7 %; LYMPH ABS # 2.25 K/uL (1.2-3.4); MEAN CELL VOLUME 89.9 fL (80-100); MEAN CORPUSCULAR HEMOGLOBIN 31.1 pg (25-34); MEAN CORPUSCULAR HGB CONC 34.6 g/dl (32-36); MEAN PLATELET VOLUME 8.8 fL (7.4-10.4); MONO % 15.8 %; NEUT % 55.6 %; PLATELET COUNT 129 K/uL (130-400); RED BLOOD COUNT 2.38 M/uL (4.7-6.1); WHITE BLOOD COUNT 9.48 K/uL (4.8-10.8)
[2016-11-30 06:41] LABS: PARTIAL THROMBOPLASTIN RATIO 1.6; PROTHROMBIN TIME (PATIENT) 22.6 SECONDS (9.0-12.0)
[2016-11-30 07:06] LABS: BUN/CREATININE RATIO 14.3 (10-20); CALCIUM 7.1 mg/dl (8.5-10.1); CREATININE 1.03 mg/dl (0.60-1.40)
[2016-11-30 07:32] LABS: PHOSPHORUS 2.2 mg/dl (2.5-4.9)
[2016-11-30] MEDS: D5W AND 1/2NSS 1,000 ML IV SCH ×2 (07:54→20:13)
[2016-11-30] MEDS: POLYETHYLENE (MIRALAX) 17 GM PACK PO SCH (08:02)
[2016-11-30] MEDS: MELOXICAM 7.5 MG TAB PO SCH (08:02)
[2016-11-30] MEDS: CHOLECALCIFEROL 1000 INTER.UNIT TAB PO SCH (08:02)
[2016-11-30] MEDS: OMEGA-3 (PURIFIED FISH OIL) 1 GM CAP PO SCH (08:02)
[2016-11-30] MEDS: ASPIRIN 81 MG ECTAB PO SCH ×2 (08:03→20:13)
[2016-11-30] MEDS: ENOXAPARIN 30 MG/0.3 ML SYR SQ SCH (08:03)
--- NOTE | 2016-11-30 08:20 | Orthopedic Progress Note ---
Orthopedic Progress Note Date of Service Nov 30, 2016. Subjective Reports: feeling well, Denies: chest pain, SOB, nausea / vomiting, light headedness, calf pain Objective calves soft nontender, N/V intact, capillary refill less than 2 sec., dressing C /D/I, A&O x3, toes mobile KNEE INCISION CDI. MOD ECCHYMOSIS, MORE LATERALLY. LARGE FRACTURE BLISTER OVER THE LATERAL ASPECT, STILL INTACT. SMALLER BLISTER MORE PROXIMALLY. WOUND VAC OVER DISTAL WOUND. Date Time Temp Pulse Resp B/P (MAP) Pulse Ox O2 Delivery O2 Flow Rate FiO2 11/30/16 07:34 36.3 73 18 116/69 (85) 94 Room Air 11/30/16 00:20 Room Air 11/29/16 23:29 37.0 11/29/16 23:20 38.0 87 16 118/71 (87) 95 Room Air 11/29/16 19:15 Room Air 11/29/16 15:05 87 96 11/29/16 15:01 37.1 85 18 105/57 (73) 93 Room Air Laboratory Results 24 Hours: Test 11/29/16 08:52 11/30/16 06:06 White Blood Count 10.97 K/uL 9.48 K/uL Red Blood Count 2.59 M/uL 2.38 M/uL Hemoglobin 8.1 g/dL 7.4 g/dL Hematocrit 23.1 % 21.4 % Mean Corpuscular Volume 89.2 fL 89.9 fL Mean Corpuscular Hemoglobin 31.3 pg 31.1 pg Mean Corpuscular Hemoglobin Concent 35.1 g/dl 34.6 g/dl Platelet Count 120 K/uL 129 K/uL Mean Platelet Volume 8.6 fL 8.8 fL Neutrophils (%) (Auto) 58.8 % 55.6 % Lymphocytes (%) (Auto) 21.4 % 23.7 % Monocytes (%) (Auto) 16.1 % 15.8 % Eosinophils (%) (Auto) 2.3 % 2.5 % Basophils (%) (Auto) 0.2 % 0.2 % Neutrophils # (Auto) 6.45 K/uL 5.26 K/uL Lymphocytes # (Auto) 2.35 K/uL 2.25 K/uL Monocytes # (Auto) 1.77 K/uL 1.50 K/uL Eosinophils # (Auto) 0.25 K/uL 0.24 K/uL Basophils # (Auto) 0.02 K/uL 0.02 K/uL Prothromb Time International Ratio 2.0 Prothrombin Time 22.6 SECONDS Assessment & Plan Assessment: SP RIGHT TKA 11/26 AT ACS WITH COMPLETE OCCLUSION POD#2 RLE FEM/POP BYPASS ACUTE BLOOD LOSS ANEMIA Plan: PT/OT AT BEDSIDE WHEN OK WITH DR. SHARMA -11/30- OK TO START PER [facility]. PAIN MANAGEMENT DVT PROPH- LOVENOX 30 BID ANEMIA- HGB 7.4 TODAY, ORDERED 2 MORE UNITS PRBCS WILL NEED CLOSE WOUND MONITORING AND BLISTER CARE- CONSIDER WOUND CONSULT (DR. GOEL).
[2016-11-30 09:41] LABS: ANISOCYTOSIS PRESENT; COMPLETE YES
--- NOTE | 2016-11-30 10:03 | Progress Note ---
Progress Note Date of Service: Nov 30, 2016. Subjective 61 yo m admitted with RLE ischemia after a R TKA, now POD #4 after RLE fem- distal post tib in situ bypass, seen in f/u today. Pt admits pain with movement and weight bearing, but states is controlled pretty well with medications. States + fatigue yesterday. No other new complaints. Problem List Medical Problems: (1) Arterial occlusion Status: Acute Objective Vital Signs Vital Signs Past 12 Hours Date Time Temp Pulse Resp B/P (MAP) Pulse Ox O2 Delivery O2 Flow Rate FiO2 11/30/16 08:00 Room Air 11/30/16 07:34 36.3 73 18 116/69 (85) 94 Room Air 11/30/16 00:20 Room Air 11/29/16 23:29 37.0 11/29/16 23:20 38.0 87 16 118/71 (87) 95 Room Air Exam CONST: A&O x3, NAD, generally healthy appearing male CHEST: RRR lungs decreased, but ctab ABD: soft, nontender, + bs x 4 quad EXT; RLE incisions intact wtih deloris, + copious serous drainage from incisions. Drainage slightly improved at ankle, and edema slightly improved in lower leg since wound vac placement yesterday. Knee incision with ecchymosis and blisters. + PT pulse, foot warm and pink. Laboratory and Microbiology Results Past 24 Hours Test 11/30/16 06:06 Range/Units White Blood Count 9.48 4.8-10.8 K/uL Red Blood Count 2.38 4.7-6.1 M/uL Hemoglobin 7.4 14.0-18.0 g/dL Hematocrit 21.4 42-52 % Mean Corpuscular Volume 89.9 80-100 fL Mean Corpuscular Hemoglobin 31.1 25-34 pg Mean Corpuscular Hemoglobin Concent 34.6 32-36 g/dl Platelet Count 129 130-400 K/uL Mean Platelet Volume 8.8 7.4-10.4 fL Neutrophils (%) (Auto) 55.6 % Lymphocytes (%) (Auto) 23.7 % Monocytes (%) (Auto) 15.8 % Eosinophils (%) (Auto) 2.5 % Basophils (%) (Auto) 0.2 % Neutrophils # (Auto) 5.26 1.4-6.5 K/uL Lymphocytes # (Auto) 2.25 1.2-3.4 K/uL Monocytes # (Auto) 1.50 0.11-0.59 K/uL Eosinophils # (Auto) 0.24 0-0.5 K/uL Basophils # (Auto) 0.02 0-0.2 K/uL RDW Standard Deviation 48.4 36.4-46.3 fL RDW Coefficient of Variation 14.8 11.5-14.5 % Immature Granulocyte % (Auto) 2.2 % Immature Granulocyte # (Auto) 0.21 0.00-0.02 K/uL Anisocytosis PRESENT Prothrombin Time 22.6 9.0-12.0 SECONDS Prothromb Time International Ratio 2.0 0.9-1.1 Activated Partial Thromboplast Time 40.6 21.0-31.0 SECONDS Partial Thromboplastin Ratio 1.6 Sodium Level 138 136-145 mmol/L Potassium Level 4.0 3.5-5.1 mmol/L Chloride Level 107 98-107 mmol/L Carbon Dioxide Level 25 21-32 mmol/L Anion Gap 6.0 3-11 mmol/L Blood Urea Nitrogen 15 7-18 mg/dl Creatinine 1.03 0.60-1.40 mg/dl Est Creatinine Clear Calc Drug Dose 94.6 ml/min Estimated GFR () 89.8 Estimated GFR (Non- 77.5 BUN/Creatinine Ratio 14.3 10-20 Random Glucose 110 70-99 mg/dl Calcium Level 7.1 8.5-10.1 mg/dl Phosphorus Level 2.2 2.5-4.9 mg/dl ASSESSMENT and PLAN: s/p RLE fem-distal post tib in situ bypass RLE ischemia d/t popliteal art occlusion post RLE TKA post op anemia Pt noted to have hgb 7.4 today. 2 U PRBC ordered. Chemistry improved. RN advised pt may require multiple dressing changes per shift if saturated.
--- NOTE | 2016-11-30 13:46 | Wound Consultation: Inpatient ---
Wound Consultation Date of Consultation: Nov 30, 2016. Attending Physician: Jase Del Toro M.D. Reason for Consultation: Postoperative blister formation right knee History of Present Illness Patient states he recently underwent a total knee joint reconstruction on Tuesday in the outpatient facility and [facility]. Following surgery the patient was developed pain in both of his feet incidentally found to have an acute arterial occlusion on the right popliteal artery and was transferred to [facility] for further treatment. Dr. Del Toro reevaluated the patient and operated performing a fasciotomy as well as a femoral -posterior tibial bypass graft. The patient states he simply noticed some blister formation around the knee over the past 48 hours. Patient states the pain has decreased in the right foot. Patient has been ambulatory today with his walker. Patient denies any fever chills or night sweats. Patient denies any other systemic complaints at this time. Family History Patient reports no known family medical history. Social History Smoking Status: Former Smoker Smokeless Tobacco Use: No Alcohol Use: Drug Use: none Marital Status: Housing Status: lives with family Occupation Status: employed Allergies Coded Allergies: Sulfa Antibiotics (Verified Allergy, Unknown, Childhood allergy, 11/26/16) Home Medications Scheduled Aspirin (Aspirin Ec), 81 MG PO BID Cholecalciferol (Vitamin D3), 1 TAB PO DAILY Fish Oil (Grassflat-3), 1 CAP PO HOLD Meloxicam (Mobic), 15 MG PO DAILY Scheduled PRN Celecoxib (CeleBREX), 200 MG PO BID PRN for Pain Docusate Sodium (Docusate Sodium), 1 CAP PO DAILY PRN for Constipation Ondasetron Odt (Zofran Odt), 4 MG SL Q8 PRN for Nausea or Vomiting Oxycodone Immediate Rel Tab (Roxicodone Ir), 5 MG PO PRN UD PRN for Severe Pain Inpatient Medications Current Inpatient Medications Medications (Trade) Dose Ordered Sig/Sondra Route Start Time Stop Time Status Last Admin Dose Admin Ioversol (Optiray 320) 100 ml UD PRN IV 11/26/16 16:30 11/30/16 16:29 Morphine Sulfate (MoRPHine SULFATE INJ) If PO analgesic is orde... Q2H PRN IV 11/27/16 02:30 12/11/16 02:29 11/29/16 13:30 4 MG Aspirin (Ecotrin Tab) 81 mg BID PO 11/27/16 09:00 12/27/16 08:59 11/30/16 08:03 81 MG Oxycodone/ Acetaminophen (Percocet 5-325mg Tab) 2 tab Q4H PRN PO 11/27/16 11:45 12/11/16 11:44 11/30/16 12:06 2 TAB Dextrose/Sodium Chloride 1,000 ml @ 100 mls/hr Q10H IV 11/27/16 12:15 12/27/16 12:14 11/30/16 07:54 100 MLS/HR Warfarin Sodium (Coumadin Tab) 5 mg DAILY@16 PO 11/27/16 16:00 12/27/16 15:59 11/29/16 15:42 5 MG Celecoxib (CeleBREX CAP) 200 mg BID PRN PO 11/27/16 12:00 12/27/16 11:59 11/28/16 07:00 200 MG Cholecalciferol (Vitamin D Tab) 1,000 inter.unit DAILY PO 11/28/16 09:00 12/28/16 08:59 11/30/16 08:02 1,000 INTER.UNIT Docusate Sodium (coLACE CAP) 100 mg DAILY PRN PO 11/27/16 12:00 12/27/16 11:59 11/27/16 21:16 100 MG Fish Oil (Grassflat-3 (Purified Fish Oil) Cap) 1 gm DAILY PO 11/28/16 09:00 12/28/16 08:59 11/30/16 08:02 1 GM Meloxicam (Mobic Tab) 15 mg DAILY PO 11/28/16 09:00 12/28/16 08:59 11/30/16 08:02 15 MG Ondansetron HCl (Zofran Odt) 4 mg Q8 PRN SL 11/27/16 12:00 12/27/16 11:59 11/29/16 07:06 4 MG Polyethylene (Miralax Powder Packet) 17 gm DAILY PO 11/29/16 09:00 12/29/16 08:59 11/30/16 08:02 17 GM Ferrous Sulfate (Feosol Tab) 325 mg BIDM PO 11/30/16 17:45 12/30/16 17:44 Physical Exam Date Time Temp Pulse Resp B/P (MAP) Pulse Ox O2 Delivery O2 Flow Rate FiO2 10/17/17 13:09 36.7 76 18 108/64 (79) 93 Room Air 11/30/16 12:30 37.3 77 18 127/72 99 11/30/16 12:00 37.4 75 18 123/70 97 11/30/16 11:45 36.8 77 18 121/69 96 11/30/16 11:31 37.0 73 16 118/68 11/30/16 08:00 Room Air 11/30/16 07:34 36.3 73 18 116/69 (85) 94 Room Air 11/30/16 00:20 Room Air 11/29/16 23:29 37.0 11/29/16 23:20 38.0 87 16 118/71 (87) 95 Room Air 11/29/16 19:15 Room Air 11/29/16 15:05 87 96 11/29/16 15:01 37.1 85 18 105/57 (73) 93 Room Air General: The patient is lying in a hospital bed in no distress. Alert, cooperative and appropriate to all questions. HEENT: Pupils equal and reactive to light. Sclera clear, EOM intact. Neck: Supple, No JVD noted Chest: CTA in all dumont. No deformity Heart: RRR without murmurs, S3, S4, thrills, rubs or heaves Extremities: Multiple blister formations are noted in the right knee postsurgical site both medially and laterally. The medial blister is 1.9 x 2.1 x 0.1 cm. Lateral blisters are 2.2 x 1.1 x 0.1 cm and 10 x 5.5 x 0.1 cm in a clustered format. No active drainage or odor is noted. No periwound erythema is present. There is also ecchymosis associated with the medial blister formation. Incision sites are noted in the anterior knee region as well as the medial aspect of the right lower extremity. Lyle in place. No drainage is noted. There is increased swelling in the right lower extremity calf region compared to the left approximate 4 cm. Distal pulses are nonpalpable however the distal capillary fill is intact 2-3 seconds. Range of motion also appears intact. Neurological: Alert and oriented x3. No focal deficits. Skin: No rashes, papules, vesicles, excoriations Laboratory Results Last 24 Hours Test 11/30/16 06:06 White Blood Count 9.48 K/uL Red Blood Count 2.38 M/uL Hemoglobin 7.4 g/dL Hematocrit 21.4 % Mean Corpuscular Volume 89.9 fL Mean Corpuscular Hemoglobin 31.1 pg Mean Corpuscular Hemoglobin Concent 34.6 g/dl Platelet Count 129 K/uL Mean Platelet Volume 8.8 fL Neutrophils (%) (Auto) 55.6 % Lymphocytes (%) (Auto) 23.7 % Monocytes (%) (Auto) 15.8 % Eosinophils (%) (Auto) 2.5 % Basophils (%) (Auto) 0.2 % Neutrophils # (Auto) 5.26 K/uL Lymphocytes # (Auto) 2.25 K/uL Monocytes # (Auto) 1.50 K/uL Eosinophils # (Auto) 0.24 K/uL Basophils # (Auto) 0.02 K/uL RDW Standard Deviation 48.4 fL RDW Coefficient of Variation 14.8 % Immature Granulocyte % (Auto) 2.2 % Immature Granulocyte # (Auto) 0.21 K/uL Blood Smear Review Anisocytosis PRESENT Prothrombin Time 22.6 SECONDS Prothromb Time International Ratio 2.0 Activated Partial Thromboplast Time 40.6 SECONDS Partial Thromboplastin Ratio 1.6 Sodium Level 138 mmol/L Potassium Level 4.0 mmol/L Chloride Level 107 mmol/L Carbon Dioxide Level 25 mmol/L Anion Gap 6.0 mmol/L Blood Urea Nitrogen 15 mg/dl Creatinine 1.03 mg/dl Est Creatinine Clear Calc Drug Dose 94.6 ml/min Estimated GFR () 89.8 Estimated GFR (Non- 77.5 BUN/Creatinine Ratio 14.3 Random Glucose 110 mg/dl Calcium Level 7.1 mg/dl Phosphorus Level 2.2 mg/dl Assessment & Plan Assessment: Postoperative blister formation right knee Plan: At this time the blisters did require debridement. With patient's permission and after the areas were prepped with Betadine the blisters were deroofed removed with scissors and forceps. Some clear gelatinous material was present no odor noted. No purulent drainage present. There is still one area of ecchymosis noted in the medial blister site. No pain to palpation or fluctuance noted. The sites of be dressed with Aquacel Ag and gauze changed on a daily basis. Wound VAC therapy will continue with the fasciotomy site black foam 125 mm of negative pressure wound VAC change 3 times weekly. Patient will continue to be monitored during his hospital course in follow-up in the outpatient clinic upon discharge. This represented a non-excisional debridement of 60 cm.
[2016-11-30] MEDS: WARFARIN SOD 5 MG TAB PO SCH (16:28)
[2016-11-30] MEDS: FERROUS SULFATE 325 MG TAB PO SCH (17:17)
[2016-11-30] MEDS ORDERED: NURSING VERBAL MED ORDER ONE (21:00)
[2016-11-30] MEDS ORDERED: TRAMADOL HCL 50 MG TAB PO PRN (21:15)
[2016-11-30] MEDS: DOCUSATE SODIUM 100 MG CAP PO PRN (23:30)
[2016-12-01] MEDS: OXYCODONE/ACETAMINOPHEN 5-325 TAB PO PRN ×4 (03:12→22:41)
[2016-12-01] MEDS: D5W AND 1/2NSS 1,000 ML IV SCH ×2 (05:30→15:37)
[2016-12-01 05:54] LABS: INR 1.9 (0.9-1.1)
[2016-12-01 07:28] VITALS: BP 121/73; PULSE 78; TEMP 37; O2SAT 96
[2016-12-01] MEDS: OMEGA-3 (PURIFIED FISH OIL) 1 GM CAP PO SCH (08:55)
[2016-12-01] MEDS: CHOLECALCIFEROL 1000 INTER.UNIT TAB PO SCH (08:55)
[2016-12-01] MEDS: ASPIRIN 81 MG ECTAB PO SCH ×2 (08:55→20:16)
[2016-12-01] MEDS: FERROUS SULFATE 325 MG TAB PO SCH ×2 (08:55→17:50)
[2016-12-01] MEDS: POLYETHYLENE (MIRALAX) 17 GM PACK PO SCH (08:55)
[2016-12-01] MEDS: MELOXICAM 7.5 MG TAB PO SCH (08:56)
--- NOTE | 2016-12-01 13:25 | Orthopedic Progress Note ---
Orthopedic Progress Note Date of Service Dec 01, 2016. Subjective Reports: feeling well, Denies: chest pain, SOB, nausea / vomiting, light headedness, calf pain Objective calves soft nontender, N/V intact, capillary refill less than 2 sec., dressing C /D/I, A&O x3, toes mobile Date Time Temp Pulse Resp B/P (MAP) Pulse Ox O2 Delivery O2 Flow Rate FiO2 12/01/16 08:00 Room Air 12/01/16 07:28 37.0 78 20 121/73 (89) 96 Room Air 11/30/16 23:18 Room Air 11/30/16 23:06 37.3 80 16 146/73 (97) 97 Room Air 11/30/16 19:23 37.0 73 18 135/69 (91) 98 Room Air 11/30/16 16:19 37.3 67 18 110/64 97 11/30/16 15:45 Room Air 11/30/16 15:25 37.1 71 18 120/69 (86) 97 Room Air 11/30/16 15:15 37.1 71 18 120/69 97 11/30/16 14:48 37.1 78 18 127/64 98 11/30/16 14:18 37.0 74 16 132/76 11/30/16 14:02 36.9 74 16 119/67 Laboratory Results 24 Hours: Test 12/01/16 05:18 Prothromb Time International Ratio 1.9 Prothrombin Time 21.0 SECONDS Assessment & Plan Assessment: SP RIGHT TKA 11/26 AT [facility] WITH COMPLETE OCCLUSION POD#4 RLE FEM/POP BYPASS ACUTE BLOOD LOSS ANEMIA Plan: PT/OT AT BEDSIDE WHEN OK WITH DR. SHARMA -11/30- OK TO START PER [facility]. PAIN MANAGEMENT DVT PROPH- COUMADIN ANEMIA- HGB 7.4 11/30, ORDERED 2 MORE UNITS PRBCS WILL NEED CLOSE WOUND MONITORING AND BLISTER CARE- APPRECIATE DR. GOEL INPUT. BLISTERS DEBRIDED, DRESSING RECOMMENDATIONS PER HIS NOTE. WILL ALLOW NURSING/ WOUND CARE TO DO DRESSING CHANGES. WILL CONTINUE TO FOLLOW BUT WILL LIKELY NOT SEE DAILY. CONTINUE PT TOLERATED. WILL HAVE RESTRICTION IN FLEXION MAINLY DUE TO SOFT TISSUE SWELLING.
[2016-12-01] MEDS: MoRPHine SULFATE 4 MG/ML 1 ML CARP\\VIAL IV PRN ×2 (13:36→20:44)
[2016-12-01 14:52] LABS: HEMATOCRIT 27.3 % (42-52)
--- NOTE | 2016-12-01 14:54 | Progress Note ---
Progress Note Date of Service: Dec 01, 2016. Subjective 61 yo m POD # 5 after RLE fem-post tib in situ bypass d/t acute ischemia of RLE after TKA, seen in f/u today. Pt states pain is improving, and has been increasing activity. Continues to have significant serous drainage from incisions. Denies any other new complaints. Problem List Medical Problems: (1) Arterial occlusion Status: Acute Objective Vital Signs Vital Signs Past 12 Hours Date Time Temp Pulse Resp B/P (MAP) Pulse Ox O2 Delivery O2 Flow Rate FiO2 12/01/16 08:00 Room Air 12/01/16 07:28 37.0 78 20 121/73 (89) 96 Room Air Exam CONST: A&O x3, NAD, generally healthy appearing male CHEST: RRR lungs decreased, but ctab ABD: soft, nontender, + bbs x 4 quad EXT: RLE incisions intact with deloris, copious serous drainage noted. Knee wound ecchymotic, blisters were debrided yesterday by wound care, not cellulitic. LAteral fasciotomy site with bulging muscle, bloody serous drainage decreased, excellent early granulation proximal end. Wound vac changed today. + pulse in BPG, toes warm and pink. Intake & Output 8-Hour Column 12/01/16 12/02/16 12/02/16 16:00 00:00 08:00 Intake Total 355 ml Output Total 300 ml Balance 55 ml 24-Hour Column 12/02/16 08:00 Intake Total 355 ml Output Total 300 ml Balance 55 ml Laboratory and Microbiology Results Past 24 Hours Test 12/01/16 05:18 12/01/16 14:27 Range/Units Prothrombin Time 21.0 9.0-12.0 SECONDS Prothromb Time International Ratio 1.9 0.9-1.1 ASSESSMENT and PLAN: s/p RLE fem-post tib in situ bPG RLE ischemia post TKA Pt doing well post op. Continues to improve. Advised pt to allow RLE bypass incisions open to air when in bed and dress lightly when OOB d/t drainage. Elevate RLE when OOB d/t edema.
[2016-12-01 15:15] VITALS: BP 158/77; PULSE 70; TEMP 37; O2SAT 99
[2016-12-01] MEDS: WARFARIN SOD 5 MG TAB PO SCH (15:37)
[2016-12-01 23:24] VITALS: BP 153/77; PULSE 74; TEMP 37.3; O2SAT 97
[2016-12-02] MEDS: D5W AND 1/2NSS 1,000 ML IV SCH ×3 (01:47→22:14)
[2016-12-02] MEDS: OXYCODONE/ACETAMINOPHEN 5-325 TAB PO PRN ×5 (03:10→21:53)
[2016-12-02] MEDS: MoRPHine SULFATE 4 MG/ML 1 ML CARP\\VIAL IV PRN ×3 (05:49→16:48)
[2016-12-02 06:30] LABS: BASO % 0.5 %; BASO ABS # 0.05 K/uL (0-0.2); COMPLETE YES; EOS % 3.5 %; HEMATOCRIT 26.9 % (42-52); IG% 4.7 %; LYMPH % 18.8 %; LYMPH ABS # 1.93 K/uL (1.2-3.4); MEAN CELL VOLUME 90.3 fL (80-100); MEAN CORPUSCULAR HEMOGLOBIN 31.2 pg (25-34); MEAN CORPUSCULAR HGB CONC 34.6 g/dl (32-36); MEAN PLATELET VOLUME 8.4 fL (7.4-10.4); MONO % 15.7 %; NEUT % 56.8 %; PLATELET COUNT 188 K/uL (130-400); RED BLOOD COUNT 2.98 M/uL (4.7-6.1); WHITE BLOOD COUNT 10.26 K/uL (4.8-10.8)
[2016-12-02 06:40] LABS: INR 1.9 (0.9-1.1); PARTIAL THROMBOPLASTIN RATIO 1.6; PROTHROMBIN TIME (PATIENT) 20.7 SECONDS (9.0-12.0)
[2016-12-02 07:35] VITALS: BP 167/93; PULSE 71; TEMP 36.8; O2SAT 98
[2016-12-02] MEDS: FERROUS SULFATE 325 MG TAB PO SCH ×2 (08:00→18:00)
[2016-12-02] MEDS: POLYETHYLENE (MIRALAX) 17 GM PACK PO SCH (08:37)
[2016-12-02] MEDS: MELOXICAM 7.5 MG TAB PO SCH (08:37)
[2016-12-02] MEDS: OMEGA-3 (PURIFIED FISH OIL) 1 GM CAP PO SCH (08:37)
[2016-12-02] MEDS: CHOLECALCIFEROL 1000 INTER.UNIT TAB PO SCH (08:38)
[2016-12-02] MEDS: ASPIRIN 81 MG ECTAB PO SCH ×2 (08:38→21:01)
[2016-12-02 15:50] VITALS: BP 129/75; PULSE 64; TEMP 37.1; O2SAT 99
[2016-12-02] MEDS: WARFARIN SOD 5 MG TAB PO SCH (16:36)
--- NOTE | 2016-12-02 16:40 | Progress Note ---
Progress Note Date of Service: Dec 02, 2016. Subjective 61 yo m POD # 6 after RLE fem-post tib in situ bypass d/t ischemic RLE after a R TKA, seen in f/u today. Pt underwent RLE lateral fasciotomy intraoperatively d/t compartment syndrome and will require wound vac for healing. Apparently approval for outpt vac has not yet been obtained and pt will be remaining in hospital until vac approved. Fasciotomy has been progressing well since vac placement POD #3. Pt states edema of RLE is improving slowly overall as well. Denies any other complaints. Problem List Medical Problems: (1) Arterial occlusion Status: Acute Objective Vital Signs Vital Signs Past 12 Hours Date Time Temp Pulse Resp B/P (MAP) Pulse Ox O2 Delivery O2 Flow Rate FiO2 12/02/16 15:50 37.1 64 18 129/75 (93) 99 Room Air 12/02/16 07:45 Room Air 12/02/16 07:35 36.8 71 18 167/93 (117) 98 Room Air Exam CONST: A&O x3, NAD, generally healthy appearing male CHEST: RRR lungs decreased but ctab ABD: soft, nontender, + bs x 4 quad EXT: RLE with +4 edema, deloris in place, well approximated. + copious serous drainage from incisions noted. + palpable pulse RLE post tib/BPG. Foot warm and pink. Vac in place lateral lower leg. Intake & Output 8-Hour Column 12/02/16 12/03/16 12/03/16 16:00 00:00 08:00 Intake Total 1163 ml Output Total 490 ml Balance 673 ml 24-Hour Column 12/03/16 08:00 Intake Total 1163 ml Output Total 490 ml Balance 673 ml Laboratory and Microbiology Results Past 24 Hours Test 12/02/16 06:18 Range/Units White Blood Count 10.26 4.8-10.8 K/uL Red Blood Count 2.98 4.7-6.1 M/uL Hemoglobin 9.3 14.0-18.0 g/dL Hematocrit 26.9 42-52 % Mean Corpuscular Volume 90.3 80-100 fL Mean Corpuscular Hemoglobin 31.2 25-34 pg Mean Corpuscular Hemoglobin Concent 34.6 32-36 g/dl Platelet Count 188 130-400 K/uL Mean Platelet Volume 8.4 7.4-10.4 fL Neutrophils (%) (Auto) 56.8 % Lymphocytes (%) (Auto) 18.8 % Monocytes (%) (Auto) 15.7 % Eosinophils (%) (Auto) 3.5 % Basophils (%) (Auto) 0.5 % Neutrophils # (Auto) 5.83 1.4-6.5 K/uL Lymphocytes # (Auto) 1.93 1.2-3.4 K/uL Monocytes # (Auto) 1.61 0.11-0.59 K/uL Eosinophils # (Auto) 0.36 0-0.5 K/uL Basophils # (Auto) 0.05 0-0.2 K/uL RDW Standard Deviation 47.4 36.4-46.3 fL RDW Coefficient of Variation 14.5 11.5-14.5 % Immature Granulocyte % (Auto) 4.7 % Immature Granulocyte # (Auto) 0.48 0.00-0.02 K/uL Prothrombin Time 20.7 9.0-12.0 SECONDS Prothromb Time International Ratio 1.9 0.9-1.1 Activated Partial Thromboplast Time 42.8 21.0-31.0 SECONDS Partial Thromboplastin Ratio 1.6 Phosphorus Level 3.2 2.5-4.9 mg/dl ASSESSMENT and PLAN: s/p RLE fem-distal post tib in situ bypass RLE ischemia d/t acute arterial occlusion s/p RLE fasciotomy d/t intraoperative compartment syndrome post RLE TKA Pt doing well post op. VSS and labs stable. Ok for discharge when outpt vac approved. Please call Dr Alvarez for any overnight emergency problems, I will be available at 0800 tomorrow.
[2016-12-02] MEDS ORDERED: MAGIC SWIZZLE PO PRN (16:45)
[2016-12-02] MEDS ORDERED: LIDOCAINE HCL 2% VISCOUS SOLN 60 ML, DiphenhydrAMINE HCL SYRUP 150 MG, ALUMINUM/MAGNESI... MT PRN ×4 (17:00)
[2016-12-03 00:13] VITALS: BP 130/78; PULSE 74; TEMP 37.6; O2SAT 97
[2016-12-03] MEDS: MoRPHine SULFATE 4 MG/ML 1 ML CARP\\VIAL IV PRN ×4 (00:15→12:29)
[2016-12-03] MEDS: DOCUSATE SODIUM 100 MG CAP PO PRN (00:15)
[2016-12-03] MEDS: OXYCODONE/ACETAMINOPHEN 5-325 TAB PO PRN (03:22)
[2016-12-03 07:24] VITALS: BP 105/66; PULSE 92; TEMP 37.7; O2SAT 97
[2016-12-03] MEDS: MELOXICAM 7.5 MG TAB PO SCH (07:37)
[2016-12-03] MEDS: D5W AND 1/2NSS 1,000 ML IV SCH (08:19)
[2016-12-03] MEDS ORDERED: OXYCODONE/ACETAMINOPHEN 5-325 TAB PO PRN (09:15)
[2016-12-03] MEDS: POLYETHYLENE (MIRALAX) 17 GM PACK PO SCH (09:23)
[2016-12-03] MEDS: OXYCODONE/ACETAMINOPHEN 10/325MG TAB PO PRN ×2 (09:38→15:45)
[2016-12-03] MEDS: OMEGA-3 (PURIFIED FISH OIL) 1 GM CAP PO SCH (09:38)
[2016-12-03] MEDS: FERROUS SULFATE 325 MG TAB PO SCH (09:38)
[2016-12-03] MEDS: ASPIRIN 81 MG ECTAB PO SCH (09:38)
[2016-12-03] MEDS: CHOLECALCIFEROL 1000 INTER.UNIT TAB PO SCH (09:39)
[2016-12-03] MEDS ORDERED: [UNRECOGNIZED DRUG - CODE] (11:20)
[2016-12-03] MEDS ORDERED: [UNRECOGNIZED DRUG - CODE] (11:20)
[2016-12-03] MEDS ORDERED: FRRS300 PO (11:20)
[2016-12-03] MEDS ORDERED: CMD5 PO (11:20)
--- NOTE | 2016-12-03 11:37 | Discharge Instructions ---
Discharge Instructions Date of Service Dec 03, 2016. Admission Reason for Admission: Ischemia Of Right Lower Extremity Discharge Discharge Diagnosis / Problem: post RIGHT leg femoral to posterior tibial artery in situ bypass & fasctiot Discharge Goals Goal(s): Therapeutic intervention Activity Recommendations Activity Limitations: per Instructions/Follow-up section . Instructions / Follow-Up Instructions / Follow-Up DO NOT ALLOW RIGHT LEG OPEN WOUND TO GET WET. Other wounds may be cleansed with mild soap and water. Apply dry dressings to staple sites ONLY if draining to floor. Otherwise, leave open to air. Activity as per recommendations from orthopedics. NEXT INR TO BE DRAWN 12/06/16 and referred to pt's PCP. FOLLOW UP with Dr Del Toro or Diana Tanner PA-C, in 2 weeks for staple removal. Call for appt. with Orthopedic surgeon as scheduled. Call to verify appt. Current Hospital Diet Patient's current hospital diet: AHA Diet (Heart Healthy) Discharge Diet Recommended Diet: AHA Diet (Heart Healthy) Procedures Procedures Performed: Thrombectomy of right lower extremity; arteriography; exploration of anterior tibial artery; femoral to distal posterior tibial artery insitu bypass. Pending Studies Studies pending at discharge: no Laboratory Results Lipid Panel Test 11/27/16 03:25 Range/Units Triglycerides Level 187 H 0-150 mg/dl Cholesterol Level 130 0-200 mg/dl HDL Cholesterol 34 mg/dl Cholesterol/HDL Ratio 3.8 LDL Cholesterol, Calculated 59 mg/dl Medical Emergencies . Who to Call and When: Medical Emergencies: If at any time you feel your situation is an emergency, please call 911 immediately. . Non-Emergent Contact Non-Emergency issues call your: Surgeon . "Provider Documentation" section prepared by Diana Tanner. . VTE Core Measure Inpt VTE Proph given/why not?: Enoxaparin (Lovenox)SQ, Warfarin (Coumadin) [place] Drug Monitoring Program Search Results: patient reviewed within database, no issues identified
--- NOTE | 2016-12-03 13:33 | Progress Note ---
Progress Note Date of Service: Dec 03, 2016. Subjective 61 yo m POD # 7 after RLE fem-post tib insitu bypass, seen in f/u today. Pt states pain well controlled with medications, and has been attempting to be more active. Still requiring significant pain medication for pain control. Denies any new complaints. Problem List Medical Problems: (1) Arterial occlusion Status: Acute Objective Vital Signs Vital Signs Past 12 Hours Date Time Temp Pulse Resp B/P (MAP) Pulse Ox O2 Delivery O2 Flow Rate FiO2 12/03/16 07:35 Room Air 12/03/16 07:24 37.7 92 17 105/66 (79) 97 Room Air Exam CONST: A&O x3, NAD, generally healthy appearing male CHEST: RRR lungs decreasd, but ctab ABD: soft, nontender, + bs x 4 quad EXT: RLE incisions intact with deloris. +4 edema noted RLE. Palpable pulse R post tib. Lateral fasciotomy with healthy muscle noted, still bulging and draining copious serous drainage requiring multiple canister changes for wound vac. Excellent granulation. ASSESSMENT adn PLAN: s/p RLE fem-post tib in situ bypass and lateral fasciotomy RLE ischemia d/t acute arterial occlusion RLE compartment syndrome post RLE TKA Pt doing well post op. OK for d/c home today with wound vac. Will see in 1-2 wks for staple removal and wound check.
[2016-12-03 14:46] VITALS: BP 105/66; PULSE 92; TEMP 37.7; O2SAT 97
[2016-12-03] MEDS: WARFARIN SOD 5 MG TAB PO SCH (15:45)
--- NOTE | 2016-12-06 09:41 | DISCHARGE SUMMARY ---
ADMISSION DIAGNOSES: 1. Right lower extremity acute ischemia. 2. Post right total knee arthroplasty. DISCHARGE DIAGNOSES: 1. Status post right lower extremity femoral artery to distal posterior tibial artery in situ bypass graft and fasciotomy, right lower extremity. 2. Right lower extremity ischemia due to acute arterial occlusion. 3. Post total knee arthroplasty. DISCHARGE CONDITION: Stable. CONSULTATIONS IN THE HOSPITAL: Included orthopedics due to the recent total knee as well as wound care due to the knee wound and fasciotomies, also critical care due to his stay in the ICU postoperatively. PROCEDURES IN HOSPITAL: Included right lower extremity thrombectomy, arteriography and exploration of anterior tibial artery and femoral to distal posterior tibial artery in situ bypass and right lateral fasciotomy. This was performed on 11/27/2016 without significant complications and an EBL of 1200 mL. HISTORY OF PRESENT ILLNESS: Mr. Crystal is a 61-year-old male who is in general good health, although had been a smoker for a number of years, who presented to the [facility] emergently after undergoing an outpatient total knee arthroplasty at an outpatient facility near [place] and he was noted to have no pulses upon discharge. He was advised to go to the nearest Emergency Room and elected to come to [facility]. Upon admission, it was determined that the patient had an acute arterial occlusion of his popliteal artery. He was recommended to undergo urgent revascularization due to his symptoms and risk for permanent damage. The risks, benefits and alternatives were discussed with the patient. He expressed understanding and agreement to proceed. HOSPITAL COURSE: The patient was admitted after undergoing his right leg revascularization. He did essentially well postoperatively. He was fairly anemic for the first few days postop, eventually requiring a total of 5 units of blood. He was asymptomatic the entire time. Upon admission, he was noted to have a slight kidney injury with a creatinine of 1.8; however, this stabilized within 1-2 days to 1.03. He did require medication for pain control and observation was felt to be necessary for his bypass as well as his fasciotomy as well as his recent knee surgery and knee wound. His knee wounds did develop blisters which underwent debridement by wound care. His fasciotomy responded very well to wound VAC placement. He was felt to be stable enough for discharge after approval for his outpatient VAC therapy. PHYSICAL EXAMINATION: VITAL SIGNS: Temperature of 37.6, pulse of 74, respiratory rate of 16, blood pressure of 130/78 with pulse oximetry of 97% on room air. CONSTITUTIONAL AND GENERAL: The patient is a healthy-appearing for age, well-nourished, well-developed middle-aged male in no acute distress. He ambulated very slowly due to his knee pain from his knee surgery as well as him only undergoing partial physical therapy while in the hospital. He did require a walker. HEAD: Normocephalic and atraumatic. EYES: EOMI. ENMT: No hearing loss, rhinorrhea or pharyngeal erythema. NECK: Supple, nontender, with midline trachea, without masses or crepitus. LUNGS: No dyspnea. They are decreased throughout but clear bilaterally. CARDIOVASCULAR: Nondisplaced apical impulse with a regular rate and rhythm without murmurs. His peripheral pulses are full and equal in all extremities unless otherwise noted, specifically they were normal in his carotid, brachial, radial and femoral pulses. His left lower extremity distal pulses are nonpalpable. His right lower extremity posterior tibial pulse in his bypass graft is +3. His DP is +1 and his toes demonstrated brisk capillary refill, warm and pink. ABDOMEN: Soft, nontender, with normoactive bowel sounds in all 4 quadrants without guarding or rebound. No flank or CVA tenderness. EXTREMITIES: Upper extremities demonstrate no cyanosis, edema, clubbing, varicosities or ulcers. Bilateral lower extremities demonstrate no cyanosis, clubbing, varicosities or ulcers. His right lower extremity surgical incisions are well approximated and healing appropriately. There are deloris in place. There is +3 to +4 edema with some serous drainage from the deloris. His lateral fasciotomy demonstrates pink healthy tissue with good granulation at the edges. There does discontinue to be some serous drainage from that as well. His knee wound does demonstrate superficial open areas which are covered with dressings. The ecchymosis appears to be improved and deloris remain in place there as well. There is no erythema. DIET UPON DISCHARGE: Should be a low-cholesterol AHA diet. MEDICATIONS: Were reconciled in the chart and are as per his discharge instructions with noted addition of Coumadin for which he will be following with his primary care physician for INR and recommendations. FOLLOWUP: Should be with Dr. Del Toro in 1-2 weeks for reevaluation and removal of deloris as well as his primary care physician within 1-2 weeks and his orthopedic surgeon as well for reevaluation of his knee wound. He was advised to call the office with any other questions or concerns.
[2016-12-28] MEDS ORDERED: WARF5TAB7 PO (15:55)
[2016-12-28] MEDS ORDERED: FERR1TAB13 PO (15:55)
[2016-12-28] MEDS ORDERED: WARF2.5T8 PO (15:55)
[2016-12-30] MEDS ORDERED: SENN-61 PO (12:23)
[2016-12-30] MEDS ORDERED: OXYC-57 PO (14:25)
--- NOTE | 2017-01-11 08:56 | OPERATIVE REPORT ---
DATE OF OPERATION: 11/27/2016 PREOPERATIVE DIAGNOSIS: Right popliteal artery occlusion with ischemic leg. POSTOPERATIVE DIAGNOSIS: Same. PROCEDURE: Thrombectomy of right lower extremity, arteriography, exploration anterior tibial artery, distal posterior tibial artery in situ bypass. SURGEON: Dr. Del Toro. ANESTHETIC: General endotracheal. PROCEDURE INDICATIONS: The patient is a 61-year-old gentleman who had a total knee replacement earlier today. Postoperatively, in the recovery room, he lost his pulses in his foot. He developed severe ischemia of the right lower extremity and was transferred to [facility]. He was found to have totally occluded popliteal artery and no Doppler signals in the foot. Emergency surgery was recommended. He understood the risks, options and benefits and agreed to have this procedure. The patient was taken to the operating room and placed in supine position. After right leg was prepped and draped in a sterile manner, a longitudinal groin incision was then made. This was carried down to where the common femoral artery was identified. It was controlled proximally and distally. A transverse arteriotomy was then made. Using Jesus catheters, the thrombus was removed from the lower extremities. A large amount of thrombus was removed; however, I could not get good Doppler signals once we closed the arteriotomy. We then punctured the common femoral artery, inserted a short catheter. Arteriography was performed, which showed totally occluded popliteal artery from the adductor hiatus distally. We did open the artery up again and did another thrombectomy. Again, we could not restore circulation. We decided to explore this. An incision was made just below the knee on the medial aspect. This was carried down to where the trifurcation identified. We did open up the tibioperoneal trunk with a small transverse arteriotomy. Using a Jesus catheter, it was passed down to the mid calf. It would not pass any further through the posterior tibial. Same thing was with the peroneal that we could not pass down below the mid calf. I then opened up the anterior compartment with a lateral incision. The anterior tibial artery was identified. It was rock hard and had no flow within it. It was heavily calcified and very diseased. I then opened up the mid incision below the ankle medially. The posterior tibial artery was found at that level. At that level, the artery was soft. A small arteriotomy was then made. This was done longitudinally. Clot was removed proximally and distally. No inflow could be accomplished due to the occlusion. I decided at that time that we needed to do a bypass for limb salvage. The saphenous vein was identified in the groin. It was a very nice usable vein. I then divided at the saphenofemoral junction and oversewed the saphenofemoral junction with a 5-0 Prolene. The arteriotomy in the common femoral was closed and we made a longitudinal arteriotomy in the superficial femoral artery in the proximal portion, which was a very good artery. No plaque was seen at that level. The saphenous vein was then beveled and an end-to-side anastomosis was accomplished. Once clamps were removed, excellent flow was seen. The patient had been heparinized the entire time. We then isolated the saphenous vein at the top of the foot. This was freed up enough that it would be able to be swung to the posterior tibial artery just at the ankle level. Using LeMaitre valve cutters, the valves were cut. Excellent flow was seen through the graft at that time. The graft was then tunneled on the skin bridge and an end-to-side anastomosis was accomplished between the saphenous vein and a longitudinal arteriotomy, which was done on the posterior tibial. After the anastomosis was completed, there was good flow seen in the posterior tibial artery. Using the Doppler, the side branches were identified and small incisions were made in the thigh over the side branches and the side branches ligated. At that point, much better flow was seen. There was a good Doppler signal in the toes that appeared to be pinked up at that time. Adequate hemostasis was noted of all the wounds. The incision at the ankle was closed with interrupted Vicryl suture for the subcutaneous layer and deloris for skin. The medial thigh incision, the groin incision, and counterincisions for the ligation of the branches were all closed with 3-0 Vicryl subcutaneous layer and deloris for the skin. The anterior compartment actually had a large edematous muscle. It was decided at that time that we would not close it. We completed the fasciotomy and divided the fascia and the entire length of the anterior compartment. Sterile dressings were then applied to all closed wounds. We used Xeroform and Kerlix over the fasciotomy site. The patient left the operating room in satisfactory condition and tolerated the procedure well. He did have a good posterior tibial Doppler signal and pink toes at the end of the procedure. I attest to the content of the Intraoperative Record and any orders documented therein. Any exception s are noted below.
--- NOTE | 2017-01-14 08:12 | EDITING REQUIRED CODING QUERY ---
CODING QUERY To promote full compliance with coding requirements relating to patient care, provider participation is requested in all cases of vocational psychologist uncertainty. Please assist us with the question(s) below: Coding Question(s): Please clarify below, in your clinical opinion, regarding the right lower extremity acute ischemia with total arterial occlusion in patient post right total knee arthroplasty. ( ) This is a complication resulting from the right TKA procedure ( ) This is not a complication resulting from the right TKA procedure ( ) etiology unknown ( ) etiology known - specify Physician's Response(s): Thank you Faiza Benson Principal Diagnosis: "_that condition established after study, to be chiefly responsible for occasioning the admission of the patient to the hospital for care." Co-Existing Principal Diagnosis: "_when two or more diagnoses equally meet the criteria for principal diagnosis as determined by the circumstances of admission, diagnostic work up, and/or therapy provided, and the Alphabetic Index, Tabular List, or another coding guideline does not provide sequencing direction, any one of the diagnoses may be sequenced first." "When the physician has documented what appears to be a current diagnosis in the body of the record, but has not included the diagnosis in the final diagnostic statement, the physician should be asked whether the diagnosis should be added." (Source [facility] 2 QTR90. p3-4)
--- NOTE | 2017-01-27 11:29 | EDITING REQUIRED CODING QUERY ---
CODING QUERY To promote full compliance with coding requirements relating to patient care, provider participation is requested in all cases of organizational consultant uncertainty. Please assist us with the question(s) below: Coding Question(s): Please clarify below, in your clinical opinion, regarding the right lower extremity acute ischemia with total arterial occlusion in patient post right total knee arthroplasty. (x ) This is a complication resulting from the right TKA procedure ( ) This is not a complication resulting from the right TKA procedure ( ) etiology unknown ( ) etiology known - specify Physician's Response(s): Thank you Faiza Benson Principal Diagnosis: "_that condition established after study, to be chiefly responsible for occasioning the admission of the patient to the hospital for care." Co-Existing Principal Diagnosis: "_when two or more diagnoses equally meet the criteria for principal diagnosis as determined by the circumstances of admission, diagnostic work up, and/or therapy provided, and the Alphabetic Index, Tabular List, or another coding guideline does not provide sequencing direction, any one of the diagnoses may be sequenced first." "When the physician has documented what appears to be a current diagnosis in the body of the record, but has not included the diagnosis in the final diagnostic statement, the physician should be asked whether the diagnosis should be added." (Source [facility] 2 QTR90. p3-4)
== END 2016-12-03 16:18 | disposition home health service (06) | DRG 982 ==
LOC: C.EDB 16:02 → C.MSICU 11-27 02:35 → ENRESERV 11-28 10:24 → CANRESERV 11-28 10:24 → EDBEDREQSVC 11-28 11:09 → ENRESERV 11-28 11:20 → C.MSN 11-28 13:17
PROVIDERS: ADMIT Surgery Vascular Surgery; ATTEND Surgery Vascular Surgery
PROC: 041 Lower Arteries, Bypass (ICD-10-PCS; principal; 2016-11-27)
PROC: 04C Lower Arteries, Extirpation (ICD-10-PCS; principal; 2016-11-27)
PROC: 0HDKXZZ Extraction of Right Lower Leg Skin, External Approach (ICD-10-PCS; 2016-12-02)
DX: T84.89XA Other specified complication of internal orthopedic prosthetic devices, implants and grafts, initial encounter (principal); M79.A21 Nontraumatic compartment syndrome of right lower extremity; I70.92 Chronic total occlusion of artery of the extremities; N17.9 Acute kidney failure, unspecified; D62 Acute posthemorrhagic anemia; I77.1 Stricture of artery; S80.221A Blister (nonthermal), right knee, initial encounter; Z96.651 Presence of right artificial knee joint; Z51.81 Encounter for therapeutic drug level monitoring; Z79.899 Other long term (current) drug therapy; Z79.82 Long term (current) use of aspirin; Z87.891 Personal history of nicotine dependence; Y83.1 Surgical operation with implant of artificial internal device as the cause of abnormal reaction of the patient, or of later complication, without mention of misadventure at the time of the procedure; X58.XXXA Exposure to other specified factors, initial encounter; Y99.8 Other external cause status

== ENCOUNTER → 2017-01-26 | Outpatient (CLI) | payer OTHER ==
[~2017-01-26] MED LIST: ASPI81TA28 PO; CHOL1000 PO; DOCU100C31 PO; FERR1TAB13 PO; OMEG10007 PO; OXYC-57 PO; OXYC1TAB3 PO; SENN-61 PO; WARF2.5T8 PO; WARF5TAB7 PO
== END | disposition home or self-care (01) ==
LOC: C.LAB1850 09:40
PROVIDERS: ATTEND Urology
DX: N50.811 Right testicular pain (principal); N52.9 Male erectile dysfunction, unspecified

== ENCOUNTER → 2017-02-15 | Outpatient (CLI) | payer OTHER ==
[~2017-02-15] MED LIST changes: +ACET300T3 PO; +OXYC-737 PO; -OXYC1TAB3 PO; +gabapentin PO
--- NOTE | 2017-02-15 18:29 | DIAGNOSTIC IMAGING REPORT ---
R ART DOP DUPLEX LWR EXT UNI CLINICAL HISTORY: RT LEG PAIN S/P BYPASS GRAFT pain. Claudication. TECHNIQUE: Doppler ultrasound COMPARISON STUDY: CT angiography 11/26/2016 FINDINGS: Interval placement of a popliteal artery bypass graft. Graft extends from the right superficial femoral artery to the anterior tibial artery. Flow characteristics of the graft proximally indicate moderate to rather significant stenotic change. The [place] vessels are patent. Flow characteristics are monophasic. IMPRESSION: 1. Moderate to rather significant narrowing of the patient's right bypass graft at its origin 2: flow characteristics throughout are monophasic with the patient's [place]ahu[place] arteries considered patent 3: graft extends from the distal superficial femoral artery to the anterior tibial artery. The above report was generated using voice recognition software. It may contain grammatical, syntax or spelling errors. Electronically signed by: Williams Arboleda M.D. 02/15/2017 6:28 PM Dictated Date/Time: 02/15/2017 6:24 PM
== END | disposition home or self-care (01) ==
LOC: C.ULTR 16:12
PROVIDERS: ATTEND Physician Assistant
DX: I73.9 Peripheral vascular disease, unspecified (principal); T82.858A Stenosis of other vascular prosthetic devices, implants and grafts, initial encounter; Z95.1 Presence of aortocoronary bypass graft

== ENCOUNTER 2017-02-16 09:07 | Day surgery (SDC) | payer OTHER ==
[~2017-02-16] VITALS: Ht 185.4 cm; Wt 91.0 kg
--- NOTE | 2017-02-16 08:06 | History and Physical ---
History & Physical Date of Service Feb 16, 2017. History & Physical Chief Complaint Discoloration of right foot with proximal bypass stenosis History of Present Illness The patient is a 61 year old male who had a total knee followed by limb salvage bypass and fasciotomy of the right leg. He developed discoloration of his right foot yesterday. USN showed a proximal stenosis of his bypass with a patent graft. Allergies Coded Allergies: Sulfa Antibiotics (Verified Allergy, Unknown, Childhood allergy, 11/26/16) Home Medications Scheduled Aspirin (Aspirin Ec), 81 MG PO BID Cholecalciferol (Vitamin D3), 1 TAB PO DAILY Fish Oil (Jerome-3), 1 CAP PO HOLD Meloxicam (Mobic), 15 MG PO DAILY Scheduled PRN Celecoxib (CeleBREX), 200 MG PO BID PRN for Pain Docusate Sodium (Docusate Sodium), 1 CAP PO DAILY PRN for Constipation Ondasetron Odt (Zofran Odt), 4 MG SL Q8 PRN for Nausea or Vomiting Oxycodone Immediate Rel Tab (Roxicodone Ir), 5 MG PO PRN UD PRN for Severe Pain Social History Smoking Status: Never Smoker Review of Systems Constitutional: No chills, No diaphoresis, No fever, No malaise, No weakness, No weight gain, No weight loss, No sweats, No fatigue, No problem reported Respiratory: No cough, No cyanosis, No SUÁREZ, No hemoptysis, No orthopnea, No PND , No short of breath, No sputum production, No stridor, No wheezing, No dyspnea , No problem reported Cardiovascular: No chest pain, No chest tightness, No chest pressure, No palpitations, No syncope, No diaphoresis, No edema, No intermittent claudication , No orthopnea, No cyanosis, No mumur, No lightheadedness, No paroxysmal nocturnal dyspnea, No problem reported Gastrointestinal: No abdominal pain, No constipation, No diarrhea, No nausea, No vomiting, No anorexia, No appetite changes, No belching, No flatulence, No food intolerance, No hematemesis, No hemorrhoids, No hematochezia, No stool changes, No heartburn, No indigestion, No dysphagia, No rectal bleeding, No problem reported Musculoskeletal: + joint pain Neurologic: No dizziness, No weakness, No headache, No lethargy, No numbness, No paresthesia, No pre-existing deficit, No seizures, No tics, No tingling, No tremors, No vertigo, No memory loss, No LOC, No problem reported Physical Exam Constitutional: General Apperance: heathly-appearing, well-nourished, well-developed Level of Distress: NAD Ambulation: ambulating normally Psychiatric: Mental Status: active & alert, normal mood, normal affect Orientation: oriented except where noted, to time, to place, to person Memory: recent memory normal, remote memory normal Lungs: Auscultation: breath sounds normal Cardiovascular: Heart Auscultation: RRR Peripheral Pulses: Radial Pulse: normal on the left, normal on the right Femoral Pulse: normal on the left, normal on the right Posterior Tibialis Pulse: normal on the left, palpable on the right Dorsalis Pedis Pulse: normal on the left, absent on the right Abdomen: Inspection & Palpation: soft Musculoskeletal: normal Extremities: Upper Right: no cyanosis, no edema, no varicosities, no palpable cord, no clubbing, no ulcers, no mottling Upper Left: no cyanosis, no edema, no varicosities, no palpable cord, no clubbing, no ulcers, no mottling Lower Right: pertinent finding (pale and cool) Lower Left: no cyanosis, no edema, no varicosities, no palpable cord, no clubbing, no ulcers, no mottling Neurologic: Cranial Nerves: grossly intact Sensation: grossly intact Assessment and Plan Imp: Right femoral posterior tibial artery bypass stenosis Plan: Patient is admitted for a right leg arteriogram with possible intervention. The patient understands the risks options and benefits and agrees to the procedure.
[~2017-02-16 09:07] MED LIST changes: -ACET300T3 PO; -OXYC-737 PO; +OXYC1TAB3 PO; -gabapentin PO
[2017-02-16] MEDS ORDERED: gabapentin PO (09:42)
[2017-02-16] MEDS ORDERED: MIDAZOLAM HCL 1 MG/ML 2ML VIAL ONE ×2 (09:42→12:57)
[2017-02-16] MEDS ORDERED: FENTANYL CITRATE INJ 50 MCG/1 ML 2 ML VIAL ONE (09:42)
[2017-02-16] MEDS ORDERED: PROPOFOL IV EMULSION 10 MG/ML 20 ML VIAL IV ONE ×2 (09:42→13:18)
[2017-02-16 09:44] VITALS: BP 142/75; PULSE 68; TEMP 36.7; O2SAT 99; Ht 185.4 cm; Wt 91.0 kg
[2017-02-16] MEDS ORDERED: ACET-749 PO (09:44)
[2017-02-16] MEDS ORDERED: HYDROmorphone INJ 2 MG/ML SYR/VIAL IV PRN (10:00)
[2017-02-16] MEDS ORDERED: LABETALOL HCL IV 5 MG/ML 20ML IV PRN (10:00)
[2017-02-16] MEDS ORDERED: FENTANYL CITRATE INJ 50 MCG/1 ML 2 ML VIAL IV PRN (10:00)
[2017-02-16] MEDS ORDERED: EpHEDrine SULFATE INJ 50 MG/ML AMP IV PRN (10:00)
[2017-02-16] MEDS ORDERED: NALOXONE HCL 0.4 MG/1 ML VIAL/CARP IV PRN (10:00)
[2017-02-16] MEDS ORDERED: MEPERIDINE HCL 25 MG/ML CARP IV PRN (10:00)
[2017-02-16] MEDS ORDERED: ATROPINE SULFATE 0.1 MG/ML 5ML SYR IV PRN (10:00)
[2017-02-16] MEDS ORDERED: PHENYLEPHRINE 100MCG/ML 5ML SYR IV PRN (10:00)
[2017-02-16] MEDS ORDERED: ONDANSETRON INJ 2 MG/ML 2 ML VIAL IV PRN (10:00)
[2017-02-16] MEDS ORDERED: FLUMAZENIL 0.1 MG/1 ML 10 ML VIAL IV PRN (10:00)
[2017-02-16] MEDS ORDERED: SODIUM CHLORIDE 0.9% 1000ML 1,000 ML IV SCH (11:27)
[2017-02-16] MEDS ORDERED: HYDROCORTISONE IV 100 MG in SYRINGE 0 ML IV SCH (11:30)
[2017-02-16] MEDS ORDERED: CEFAZOLIN IV 1,000 MG in DEXTROSE 5% 50ML 50 ML IV ONE (11:30)
[2017-02-16] MEDS ORDERED: CIMETIDINE 300 MG TAB PO ONE (11:30)
[2017-02-16] MEDS ORDERED: HYDROCORTISONE SOD SUCCINATE 100 MG/2 ML VIAL ONE (11:52)
[2017-02-16] MEDS ORDERED: CEFAZOLIN 2000MG IV PUSH 10 ML IV SCH (12:00)
[2017-02-16 12:20] LABS: INR 1.2 (0.9-1.1)
[2017-02-16 12:34] LABS: CREATININE 0.88 mg/dl (0.60-1.40)
--- NOTE | 2017-02-16 13:25 | [facility] Post Operative Brief Note ---
Immediate Operative Summary Operative Date Feb 16, 2017. Pre-Operative Diagnosis Stenosis of Femoral Popliteal Bypass Post-Operative Diagnosis No stenosis Procedure(s) Performed Right Lower Extremity Angiogram, Mechanical closure left common femoral artery Surgeon Dr. Del Toro Street Light Repairer Surgeon(s) None Estimated Blood Loss 5 Findings no stenosis seen Specimens None Anesthesia Local with sedation Complication(s) None Disposition Recovery Room / PACU
--- NOTE | 2017-02-16 13:27 | Discharge Instructions ---
Discharge Instructions Date of Service Feb 16, 2017. Visit Reason for Visit: Right Lower Extremity Claudication S/P Bypass Boon Discharge Discharge Diagnosis / Problem: Stenosis of graft by ultrasound Discharge Goals Goal(s): Diagnostic testing Activity Recommendations Activity Limitations: per Instructions/Follow-up section Anesthesia . Post Anesthesia Instructions: If you have had General Anesthesia or IV Sedation: * Do not drive today. * Resume driving when surgeon permits. * Do not make important decisions or sign legal documents today. * Call surgeon for: 1. Temperature elevations greater than 101 degrees F. 2. Uncontrollable pain. 3. Excessive bleeding. 4. Persistent nausea and vomiting. 5. Medication intolerance (nausea, vomiting or rash). * For nausea and vomiting use only clear liquids such as: tea, soda, bouillon until nausea subsides, then gradually increase diet as tolerated. * If you have any concerns or questions, call your surgeon's office. If physician is unavailable and it is an emergency, call 911 or go to the nearest emergency room. . Instructions / Follow-Up Instructions / Follow-Up Call [phone] to schedule a follow up appointment if one not already scheduled. SPECIAL CARE INSTRUCTIONS: Medications: * Continue to take your medications as directed. If you have been given a prescription for Plavix, please fill it immediately and take as directed. Incision Care: * Your puncture site may have some bruising and minor swelling for about one week. * You will have a small dressing covering your puncture site. You may remove the dressing after 24 hours and shower. You may let the warm soapy water run over it, but be sure to dry the puncture site well and keep it dry. * DO NOT IMMERSE THE INCISION IN A TUB/POOL/etc. UNTIL HEALED. * Puncture sites should be kept covered with a band-aid until it begins to heal. Restrictions: * Depending on whether you leg or arm was punctured to access the arteries, you will be required to lay flat, hold your arm still, or both, for about 4 hours after the procedure to prevent bleeding. * Limit your activity for the first 48 hours. You may walk and go up and down steps. Avoid excessive bending or movement at the puncture site. Possible Complications: * Excessive Swelling - after blood flow is improved you may notice increased swelling in the lower legs. This is a normal response. This usually depends on the amount of blockages in the leg, how long they have been there prior to your procedure and how much blood flow was restored. Elevating your legs will help to improve this. Please notify our office ([phone] ) if the swelling does not go away after lying in bed overnight. * Infection/Drainage/Bleeding - Drainage or bleeding from the puncture site should be minimal. If you have excessive bleeding or drainage, call our office ([phone]) right away. * Pain - You may experience some mild pain or soreness at your puncture site. If your pain does not improve, please contact our office ([phone]). Call your doctor and seek emergent treatment if you develop: * Temperature above 101 degrees * Any fever or chills * Any redness or purulent drainage from the puncture site * Any new dusky/blue colored toes or feet with coolness or sharp or aching pain. SKIN IRRITATION: * You may experience some redness and/or swelling in the area where radiation was administered. If any skin irritation occurs, please contact your family physician. FOLLOW UP VISIT: Keep any scheduled doctor appointments. Diet Recommendations Recommended Home Diet: resume previous diet Procedures Procedures Performed: Right Lower Extremity Angiogram, Mechanical closure left common femoral artery Pending Studies Studies pending at discharge: no Medical Emergencies . Who to Call and When: Medical Emergencies: If at any time you feel your situation is an emergency, please call 911 immediately. . Non-Emergent Contact Non-Emergency issues call your: Surgeon . . "Provider Documentation" section prepared by Jase Del Toro. .
[2017-02-16] MEDS ORDERED: OXYCODONE/ACETAMINOPHEN 5-325 TAB PO PRN (13:30)
--- NOTE | 2017-02-16 13:35 | [facility] Operative Report ---
Operative Report Operative Date Feb 16, 2017. Pre-Operative Diagnosis Stenosis of Femoral Popliteal Bypass Post-Operative Diagnosis No stenosis Procedure(s) Performed Right Lower Extremity Angiogram, Mechanical closure left common femoral artery Surgeon Dr. Del Toro Silk Screen Printer Helper Surgeon(s) None Estimated Blood Loss 5 Findings no stenosis of graft Specimens None Anesthesia Local with sedation Complication(s) None Disposition Recovery Room / PACU Indications This is a 61-year-old gentleman who has a right femoral to posterior tibial bypass for limb salvage. He noticed yesterday a discoloration of his foot. He also has chronic foot pain. Ultrasound done of the right lower extremity showed a possible stenosis of the proximal portion of his bypass. Arteriography with possible intervention was recommended. I have discussed the risks options and benefits of the procedure with the patient. The patient understands the risks options and benefits and agrees to the procedure. Description of Procedure The patient was taken to the angiogram suite and placed in the supine position. Both groins were then prepped and draped in a sterile manner. A puncture was then made of the left common femoral artery. A wire followed by a 5 [place] sheath was inserted. Using an 035 Glidewire and a rim catheter the right iliac was cannulated from the left side. The wire and catheter were advanced down to the right common femoral artery. Arteriography was then performed. This showed mild irregularity of the superficial femoral artery in the proximal portion with no significant narrowing. The bypass graft origin was widely patent with good flow. Following the bypass downward it was patent throughout. No evidence of stenosis was seen in the entire graft. There is also a small amount of outflow seen at the ankle. There was note that the the superficial femoral artery and popliteal artery were open at this time. We then did selective films of the graft and the superficial femoral artery. The bypass graft again showed it to be widely patent throughout. The outflow seen into the posterior tibial artery however there is minimal. The catheter was then pulled back and passed downward into the superficial femoral artery. Arteriography showed recannulization of the popliteal artery as well as the tibioperoneal trunk with the peroneal outflow down to the foot which of the reconstituted both the dorsalis pedis and posterior tibial distally. The anterior tibial and posterior tibial arteries proximally are occluded. At that point the catheter was removed. No intervention was needed. Injection of the sheath showed the puncture to be in the left common femoral artery. The puncture site was then closed using the Star closure device without difficulty. Sterile dressings were applied to the left groin. The patient left the [facility] in good condition and tolerated the procedure well. I attest to the content of the Intraoperative Record and any orders documented therein. Any exceptions are noted below.
[2017-02-16] MEDS ORDERED: IODIXANOL (VISIPAQUE) 270 MG/ML 150ML FLUSH ONE (13:36)
[2017-02-16] MEDS ORDERED: LIDOCAINE HCL 1% 20 ML VIAL SQ ONE (13:36)
[2017-02-16 13:45] VITALS: BP 165/87; PULSE 64; TEMP 36.4; O2SAT 100
--- NOTE | 2017-02-16 14:08 | Anesthesiology Progress Note ---
Anesthesia Post Op Note Date & Time Feb 16, 2017 at 14:07 Vital Signs Pain Intensity: 1 Vital Signs Past 12 Hours Date Time Temp Pulse Resp B/P (MAP) Pulse Ox O2 Delivery O2 Flow Rate FiO2 02/16/17 09:44 36.7 68 18 142/75 (97) 99 Room Air Notes Mental Status: alert / awake / arousable, participated in evaluation Pt Amnestic to Procedure: Yes Nausea / Vomiting: adequately controlled Pain: adequately controlled Airway Patency, RR, SpO2: stable & adequate BP & HR: stable & adequate Hydration State: stable & adequate Anesthetic Complications: no major complications apparent
[2017-02-16 14:15] VITALS: BP 161/85; PULSE 71; TEMP 36.3; O2SAT 100
[2017-02-16 14:45] VITALS: BP 151/81; PULSE 64; TEMP 37.1; O2SAT 97
[2017-02-16] MEDS ORDERED: NURSING VERBAL MED ORDER ONE (15:30)
[2017-02-16 15:45] VITALS: BP 146/80; PULSE 74; TEMP 36.7; O2SAT 98
[2017-02-16] MEDS ORDERED: PERCOCET HOME PACK PO SCH (16:00)
[2017-02-16 16:45] VITALS: BP 135/71; PULSE 67; TEMP 36.5; O2SAT 98
== END 2017-02-16 16:50 | disposition home or self-care (01) ==
LOC: C.ACU 09:07
PROVIDERS: ATTEND Surgery Vascular Surgery
DX: T82.858A Stenosis of other vascular prosthetic devices, implants and grafts, initial encounter (principal); Z79.82 Long term (current) use of aspirin; Z88.2 Allergy status to sulfonamides; Y82.8 Other medical devices associated with adverse incidents; Z98.1 Arthrodesis status; Z87.891 Personal history of nicotine dependence; M19.90 Unspecified osteoarthritis, unspecified site